=== PATIENT | female | born 1935 | race Caucasian/White ===

== ENCOUNTER 2024-03-16 19:08 | Inpatient (IN) | payer MEDICARE, OTHER, SELFPAY ==
[2024-03-16] VITALS (30 sets, daily range): BP systolic 96–129; BP diastolic 61–80; PULSE 69–102; TEMP 36.9; O2SAT 93–98; BMI 21.4
--- NOTE | 2024-03-16 19:12 | ECG_ITS ---
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
--- NOTE | 2024-03-16 19:21 | ED.WEAKNESS1 ---
HPI - Weakness General Chief complaint: Weakness Stated complaint: WEAKNESS Time Seen by Provider: 03/16/24 19:17 Source: patient Mode of arrival: ambulance Limitations: physical limitation History of Present Illness HPI Narrative: patient presents from home with generalized weakness for about 4 days. Recent placement of pacemaker. Also being treated for UTI. Denies any chest or abdominal pain. Has chronic hip pain. No fever. States she vomited once and also one episode of diarrhea. She is not short of breath. Related Data Home Medications ?Medication ?Instructions ?Recorded ?Confirmed apixaban 2.5 mg tablet 2.5 mg PO BID 03/16/24 03/16/24 atorvastatin 10 mg tablet 10 mg PO DAILY 03/16/24 03/16/24 hydrochlorothiazide 12.5 mg capsule 12.5 mg PO DAILY 03/16/24 03/16/24 losartan 50 mg tablet 50 mg PO DAILY 03/16/24 03/16/24 methimazole 5 mg tablet 5 mg PO DAILY 03/16/24 03/16/24 metoprolol tartrate 25 mg tablet 25 mg PO DAILY 03/16/24 03/16/24 sulfamethoxazole 800 1 tab PO DAILY 03/16/24 03/16/24 mg-trimethoprim 160 mg tablet (Bactrim DS) Allergies Allergy/AdvReac Type Severity Reaction Status Date / Time No Known Drug Allergies Allergy Verified 03/16/24 19:16 Review of Systems ROS Status of ROS 10 or more systems reviewed and unremarkable except as noted in history and below PFSH PFSH Social History Little interest or pleasure in doing things: not at all Feeling down, depressed, or hopeless: not at all Exam Constitutional Vital Signs, click to edit/add: Last Vital Signs Temp 98.4 F 03/16/24 19:10 Pulse 70 03/16/24 23:50 Resp 17 03/16/24 23:10 BP 118/75 03/16/24 23:30 Pulse Ox 95 03/16/24 22:50 O2 Del Method Room Air 03/16/24 19:10 Common normals: average body habitus, oriented x3, no limitations, alert and well nourished Other: looks weak HENMT Common normals: normocephalic and head/scalp atraumatic Eye Common normals: EOMs intact bilaterally and conjunctivae normal Chest Other: ecchymosis of her breast from pacer placement Respiratory Common normals: normal respiratory effort, no retractions, no use of accessory muscles and clear to auscultation bilaterally Cardio Common normals: regular rate, regular rhythm, S1 normal heart sound and S2 normal heart sound GI Common normals: Normal to inspection, nondistended, normoactive bowel sounds present, soft to palpation and non-tender Extremity Common normals: normal to inspection and full ROM Neuro Common normals: oriented x3, CN's II-XII intact bilaterally, moves all extremities and no focal motor deficits Psych Appearance: grossly normal Course Vital Signs Vital signs: Vital Signs Temperature 98.4 F 03/16/24 19:10 Pulse Rate 93 H 03/16/24 19:10 Respiratory Rate 18 03/16/24 19:10 Blood Pressure 96/61 03/16/24 19:10 Pulse Oximetry 95 03/16/24 19:10 Oxygen Delivery Method Room Air 03/16/24 19:10 Temperature 98.4 F 03/16/24 19:10 Pulse Rate 70 03/16/24 23:50 Respiratory Rate 17 03/16/24 23:10 Blood Pressure 118/75 03/16/24 23:30 Pulse Oximetry 95 03/16/24 22:50 Oxygen Delivery Method Room Air 03/16/24 19:10 MDM - Weakness Medical Records Medical records narrative: patient presents with generalized weakness for past 3- for days. No pain or dyspnea. Troponin neg. cxray clear. UA infected. Discussed with the hospitalist and patient accepted for admission Lab Data Labs: Lab Results 03/16/24 03/16/24 Range/Units 19:25 23:14 WBC 8.2 (4.0-11.0) 10^3/uL RBC 4.74 (4.20-5.40) 10^6/uL Hgb 14.4 (12.0-16.0) g/dL Hct 42.3 (36.0-48.0) % MCV 89.2 (81.0-99.0) fL MCH 30.4 (26.7-34.0) pg MCHC 34.0 (29.9-35.2) g/dL RDW 13.6 (11.0-15.0) % Plt Count 213 (150-450) 10^3/uL MPV 9.4 L (9.5-13.5) fL Seg Neuts % (Manual) 86.0 H (43.0-75.0) Lymphocytes % (Manual) 8.0 L (20.5-60.0) % Monocytes % (Manual) 5.0 (1.7-12.0) % Eosinophils % (Manual) 1.0 (0.9-7.0) % Basophils % (Manual) 0.0 L (0.2-2.0) % Neutrophils # (Manual) 7.05 H (1.4-6.5) 10^3/uL Lymphocytes # (Manual) 0.65 L (1.20-3.80) 10^3/uL Monocytes # (Manual) 0.41 (0.30-0.80) 10^3/uL Eosinophils # (Manual) 0.08 (0.00-0.70) 10^3/uL Basophils # (Manual) 0.00 (0.00-0.10) 10^3/uL Sodium 133 L (136-145) mmol/L Potassium 4.5 (3.5-5.1) mmol/L Chloride 100 (98-107) mmol/L Carbon Dioxide 19.1 L (21.0-32.0) mmol/L Anion Gap 18.4 BUN 31.0 H (7.0-18.0) mg/dL Creatinine 0.96 (0.55-1.02) mg/dL Est GFR ( Amer) >60 (>=60 mL/min/1.73m^2) Est GFR (Non-Af Amer) 55 L (>=60 mL/min/1.73m^2) BUN/Creatinine Ratio 32.3 Glucose 134 H (74-106) mg/dL Lactate 1.5 (0.4-2.0) mmol/L Calcium 8.4 L (8.5-10.1) mg/dL Total Bilirubin 0.5 (0.2-1.0) mg/dL AST 26 (15-37) U/L ALT 16 (14-59) U/L Alkaline Phosphatase 76 (46-116) U/L Troponin I High Sens 9.5 (4.0-51.3) pg/mL Total Protein 6.0 L (6.4-8.2) g/dL Albumin 2.9 L (3.4-5.0) g/dL Globulin 3.1 g/dL Albumin/Globulin Ratio 0.9 TSH & Free T4 Interp 1.088 (0.358-3.740) uIU/mL Urine Color Dk yellow (YELLOW) Urine Clarity Slightly cloudy A (CLEAR) Urine pH 6.0 (5.0-9.0) Ur Specific [place] 1.025 (1.005-1.025) Urine Protein 30 A (NEG/TRACE) mg/dL Urine Glucose (UA) Negative (NEGATIVE) mg/dL Urine Ketones 40 A (NEGATIVE) mg/dL Urine Occult Blood Trace-l (NEGATIVE) Urine Nitrite Negative (NEGATIVE) Urine Bilirubin Small A (NEGATIVE) Urine Urobilinogen 2.0 A (0.2-1.0) EU/dL Ur Leukocyte Esterase Small A (NEGATIVE) Urine RBC 0-2 (0-2) #/HPF Urine WBC 10-20 A (NONE SEEN) #/HPF Ur Squamous Epith Cells Moderate A (NONE/RARE) #/LPF Urine Crystals None seen (None Seen) #/HPF Urine Bacteria Moderate A (NONE SEEN) #/HPF Urine Casts Seen A (NONE SEEN) #/LPF Hyaline Casts Few Coarse Granular Casts Moderate Urine Mucus Small A (NONE SEEN) Ur Culture Indicated? Yes Discharge Plan Discharge Chief Complaint: Weakness Clinical Impression: Acute UTI, Generalized weakness Patient Disposition: Admitted as Observation
--- NOTE | 2024-03-16 19:24 | XR_ITS ---
The [address] [address] Patient Name: JOSEMANUEL GREER MRN: [id number] date: 1935 Sex: F Assigned Patient Location: ER Current Patient Location: ER Accession/Order Number: [id number] Exam Date: 03/16/2024 19:38 Report Date: 03/16/2024 21:56 At the request of: KEATON RUSH Procedure: XR chest 1V CHEST RADIOGRAPH: HISTORY: weakness. COMPARISON: None available. TECHNIQUE: AP radiograph of was performed of the chest. FINDINGS: SUPPORT APPARATUS/POST-SURGICAL CHANGES: There is a left subclavian pacemaker with leads in the right atrium and right ventricle. CARDIOMEDIASTINAL SILHOUETTE: Upper limits of normal in size. The aorta is tortuous with atherosclerotic calcification and slightly ectatic. AIRWAYS/LUNGS: There is probable mild right basilar atelectasis but no focal consolidation. PLEURAL SPACES: No pleural effusion or pneumothorax. BONES AND SOFT TISSUES: No acute abnormality. XR/XR chest 1V IMPRESSION: No acute cardiopulmonary process. Electronically authenticated by: NIKO NARAYANAN Date: 03/16/2024 21:56
[2024-03-16] MEDS: 0.9 % SODIUM CHLORIDE 1,000 ML 999 ML IV (19:40)
[2024-03-16 19:54] LABS: Hematocrit 42.3 % (36.0-48.0); Hemoglobin 14.4 g/dL (12.0-16.0); Mean Corpuscular Hemoglobin 30.4 pg (26.7-34.0); Mean Corpuscular Volume 89.2 fL (81.0-99.0); Mean Platelet Volume 9.4 fL (9.5-13.5); Platelet Count 213 10^3/uL (150-450); Red Blood Count 4.74 10^6/uL (4.20-5.40); Red Cell Distribution Width 13.6 % (11.0-15.0); White Blood Count 8.2 10^3/uL (4.0-11.0)
[2024-03-16 20:18] LABS: Lactate/Lactic Acid 1.5 mmol/L (0.4-2.0)
[2024-03-16 20:25] LABS: Alanine Aminotransferase 16 U/L (14-59); Albumin Globulin Ratio 0.9; Albumin Level 2.9 g/dL (3.4-5.0); Alkaline Phosphatase 76 U/L (46-116); Anion Gap 18.4; Aspartate Amino Transferase 26 U/L (15-37); BUN Creatinine Ratio 32.3; Bilirubin Total 0.5 mg/dL (0.2-1.0); Calcium 8.4 mg/dL (8.5-10.1); Carbon Dioxide 19.1 mmol/L (21.0-32.0); Chloride 100 mmol/L (98-107); Estimated GFR (African America >60 (>=60 mL/min/1.73m^2); Estimated GFR (Non-African Ame 55 (>=60 mL/min/1.73m^2); Globulin 3.1 g/dL; Glucose 134 mg/dL (74-106); Potassium 4.5 mmol/L (3.5-5.1); Sodium 133 mmol/L (136-145); Troponin I High Sensitivity 9.5 pg/mL (4.0-51.3)
[2024-03-16 20:32] LABS: TSH W/ REFLEX FT4 1.088 uIU/mL (0.358-3.740)
[2024-03-16 21:14] LABS: Eosinophils Absolute Manual 0.08 10^3/uL (0.00-0.70); Lymphocytes Absolute Manual 0.65 10^3/uL (1.20-3.80); Monocytes Absolute Manual 0.41 10^3/uL (0.30-0.80); Segmented Neut Absolute Manual 7.05 10^3/uL (1.4-6.5)
[2024-03-16] MEDS: ACETAMINOPHEN 500 MG TABLET 1000 MG PO (21:37)
[2024-03-16 23:22] LABS: Bilirubin Urine SMALL (NEGATIVE); Blood Urine TRACE-L (NEGATIVE); Glucose Urine UA NEGATIVE (NEGATIVE); Ketones Urine 40 mg/dL (NEGATIVE); Leukocyte Esterase Urine SMALL (NEGATIVE); Nitrite Urine NEGATIVE (NEGATIVE); Protein Urine 30 mg/dL (NEG/TRACE); Specific Gravity Urine 1.025 (1.005-1.025)
[2024-03-16 23:23] LABS: Urine Microscopic Indicated YES
[2024-03-16 23:24] LABS: Clarity Urine SLIGHTLY CLOUDY (CLEAR); Color Urine DK YELLOW (YELLOW)
[2024-03-16 23:46] LABS: RBC Urine 0-2 #/HPF (0-2)
[2024-03-16 23:47] LABS: Bacteria Urine MODERATE #/HPF (NONE SEEN); Cast Seen? SEEN #/LPF (NONE SEEN); Coarse Granular Casts Urine MODERATE; Crystals Seen? None Seen #/HPF (None Seen); Hyaline Casts Urine FEW; Mucus Urine SMALL (NONE SEEN); Squamous Epithelial Cell Urine MODERATE #/LPF (NONE/RARE); Urine Culture Indicated YES
[2024-03-17] VITALS (15 sets, daily range): BP systolic 103–135; BP diastolic 65–86; PULSE 60–99; TEMP 36.2–36.6; O2SAT 93–97; BMI 21.6
[2024-03-17] MEDS: 0.9 % SODIUM CHLORIDE 1,000 ML 100 ML IV (05:57)
[2024-03-17] MEDS: ONDANSETRON PF 4 MG/2 ML VIAL IV ×3 (05:58→22:32)
[2024-03-17] MEDS: HYDROCODONE/ACET 5-325 MG TABLET 1 TAB PO (05:58)
[2024-03-17] MEDS: CEFTRIAXONE 1,000 MG in 0.9 % SODIUM CHLORIDE 50 ML 100 MG IV ×2 (05:58→22:32)
[2024-03-17 06:27] LABS: Basophils Percent Auto 0.4 % (0.2-2.0); Eosinophils Absolute Auto 0.1 10^3/uL (0.0-0.7); Eosinophils Percent Auto 0.9 % (0.9-7.0); Hematocrit 40.1 % (36.0-48.0); Hemoglobin 13.7 g/dL (12.0-16.0); Immature Granulocytes Abs Auto 0.03 10^3/uL (0.00-0.03); Immature Granulocytes Pct Auto 0.3 % (0.0-0.5); Lymphocytes Absolute Auto 0.9 10^3/uL (1.2-3.8); Lymphocytes Percent Auto 9.7 % (20.5-60.0); Mean Corpuscular HGB Conc 34.2 g/dL (29.9-35.2); Mean Corpuscular Hemoglobin 30.5 pg (26.7-34.0); Mean Corpuscular Volume 89.3 fL (81.0-99.0); Mean Platelet Volume 9.2 fL (9.5-13.5); Monocytes Absolute Auto 0.6 10^3/uL (0.3-0.8); Monocytes Percent Auto 6.7 % (1.7-12.0); Neutrophils Absolute Auto 7.3 10^3/uL (1.4-6.5); Platelet Count 185 10^3/uL (150-450); Red Blood Count 4.49 10^6/uL (4.20-5.40); Red Cell Distribution Width 13.6 % (11.0-15.0)
[2024-03-17 06:56] LABS: Alanine Aminotransferase 14 U/L (14-59); Albumin Globulin Ratio 0.9; Albumin Level 2.4 g/dL (3.4-5.0); Alkaline Phosphatase 63 U/L (46-116); Anion Gap 15.9; Aspartate Amino Transferase 29 U/L (15-37); Bilirubin Total 0.5 mg/dL (0.2-1.0); Carbon Dioxide 22.6 mmol/L (21.0-32.0); Chloride 103 mmol/L (98-107); Estimated GFR (African America >60 (>=60 mL/min/1.73m^2); Estimated GFR (Non-African Ame >60 (>=60 mL/min/1.73m^2); Globulin 2.8 g/dL; Glucose 118 mg/dL (74-106); Potassium 4.5 mmol/L (3.5-5.1); Sodium 137 mmol/L (136-145); Total Protein 5.2 g/dL (6.4-8.2)
[2024-03-17 07:00] LABS: Magnesium 1.8 mg/dL (1.8-2.4)
--- NOTE | 2024-03-17 10:39 | P.HP_ITS ---
HPI H&P: HPI History of Present Illness Chief complaint: WEAKNESS Narrative: Patient presented to the emergency room with increasing weakness. Found to have significant sinus tachycardia and hypotension secondary to acute UTI. I saw patient up on the medical surgical floor, she was feeling somewhat better with fluids given overnight. No other specific complaints. Opioid HPI Opioid Management Most Recent Pain and Opioid Data: Last Pain Scale 7 03/17/24 11:00 03/17/24 Last Pain Assessment 03/17/24 11:00 Last MAR Pain Assessment 03/17/24 05:58 Last ORT Total Score 0 03/17/24 00:53 03/17/24 Last ORT Risk Category Low Risk 03/17/24 00:53 03/17/24 Review of Systems ROS Status of ROS 10 or more systems reviewed and unremark able except as noted in history and below [facility] Medical History (Updated 03/17/24 @ 07:15 by Taylor Diaz) Pacemaker ?Z95.0 - Presence of cardiac pacemaker (ICD-10) Social History Highest level of school completed/degree received: high school graduate Little interest or pleasure in doing things: not at all Feeling down, depressed, or hopeless: not at all Meds Home Medications and Allergies Home Medications ?Medication ?Instructions ?Recorded ?Confirmed ?Type apixaban 2.5 mg tablet 2.5 mg PO BID 03/16/24 03/16/24 History atorvastatin 10 mg tablet 10 mg PO DAILY 03/16/24 03/16/24 History hydrochlorothiazide 12.5 mg capsule 12.5 mg PO DAILY 03/16/24 03/16/24 History losartan 50 mg tablet 50 mg PO DAILY 03/16/24 03/16/24 History methimazole 5 mg tablet 5 mg PO DAILY 03/16/24 03/16/24 History metoprolol tartrate 25 mg tablet 25 mg PO DAILY 03/16/24 03/16/24 History sulfamethoxazole 800 1 tab PO DAILY 03/16/24 03/16/24 History mg-trimethoprim 160 mg tablet (Bactrim DS) Allergies Allergy/AdvReac Type Severity Reaction Status Date / Time No Known Drug Allergies Allergy Verified 03/16/24 19:16 Exam Constitutional Vital Signs, click to edit/add: Last Vital Signs Temp 97.6 F 03/17/24 00:53 Pulse 92 H 11/09/24 10:00 Resp 16 03/17/24 00:53 BP 135/72 03/17/24 00:53 Pulse Ox 94 L 03/17/24 00:53 O2 Del Method Room Air 03/17/24 00:53 Documenting provider has reviewed patient's vital signs: yes Common normals: no apparent distress Chest Common normals: inspection of chest normal Respiratory Common normals: normal respiratory effort and no retractions Cardio Common normals: regular rate and regular rhythm GI Common normals: Normal to inspection, nondistended, normoactive bowel sounds present and soft to palpation Common normals: external appearance normal Extremity Common normals: normal to inspection and full ROM Results Labs Labs: Short CBC 03/16/24 03/17/24 Range/Units 19:25 06:08 WBC 8.2 9.0 (4.0-11.0) 10^3/uL Hgb 14.4 13.7 (12.0-16.0) g/dL Hct 42.3 40.1 (36.0-48.0) % Plt Count 213 185 (150-450) 10^3/uL BMP 03/16/24 03/17/24 19:25 06:08 Sodium 133 L 137 Potassium 4.5 4.5 Chloride 100 103 Carbon Dioxide 19.1 L 22.6 BUN 31.0 H 28.0 H Creatinine 0.96 0.80 Glucose 134 H 118 H Calcium 8.4 L 8.0 L Liver Function 03/16/24 03/17/24 Range/Units 19:25 06:08 Total Bilirubin 0.5 0.5 (0.2-1.0) mg/dL AST 26 29 (15-37) U/L ALT 16 14 (14-59) U/L Alkaline Phosphatase 76 63 (46-116) U/L Albumin 2.9 L 2.4 L (3.4-5.0) g/dL Urine 03/16/24 Range/Units 23:14 Urine Color Dk yellow (YELLOW) Urine Clarity Slightly cloudy A (CLEAR) Urine pH 6.0 (5.0-9.0) Ur Specific [place] 1.025 (1.005-1.025) Urine Protein 30 A (NEG/TRACE) mg/dL Urine Glucose (UA) Negative (NEGATIVE) mg/dL Assessment and Plan Assessment and Plan (1) Generalized weakness: (2) Acute UTI: Plan Admission findings: Sinus tachycardia, hypotension, hyponatremia, normal white blood cell count but with left shift consistent with bacterial process. Acute UTI-IV antibiotics. IV fluids overnight. Patient without significant improvement since admission. Difficulty ambulating secondary to weakness and shortness of breath. Continue with IV antibiotics. Hyponatremia likely secondary to mild dehydration-monitor daily Moderate protein calorie malnutrition-diet management Hyperglycemia-monitor daily likely to secondary to nonfasting state Hypercholesterolemia-continue with home medications Hyperthyroidism-continue with home medications Admission status: Patient with significant weakness secondary to UTI and dehydration. She was given fluid overnight without significant improvement. Medically necessary treatment will span 2 midnights. Will change patient from observation to inpatient status secondary to the length of care needed, again medically necessary treatment spanning 2 midnights
[2024-03-17] MEDS: METHIMAZOLE 5 MG TABLET PO (15:25)
[2024-03-17] MEDS: ACETAMINOPHEN 500 MG TABLET 1000 MG PO ×2 (15:25→22:31)
[2024-03-17] MEDS: METOPROLOL TARTRATE 25 MG TABLET PO (15:26)
[2024-03-17] MEDS: HYOSCYAMINE SULFATE 0.125 MG TAB.SUBL SL (22:31)
[2024-03-17] MEDS: APIXABAN 5 MG TABLET 2.5 MG PO (22:32)
[2024-03-18] VITALS (7 sets, daily range): BP systolic 131; BP diastolic 80; PULSE 60–69; TEMP 36.6–36.7; O2SAT 93–96
[2024-03-18 06:26] LABS: Hematocrit 38.4 % (36.0-48.0); Hemoglobin 13.2 g/dL (12.0-16.0); Mean Corpuscular HGB Conc 34.4 g/dL (29.9-35.2); Mean Corpuscular Hemoglobin 30.7 pg (26.7-34.0); Mean Corpuscular Volume 89.3 fL (81.0-99.0); Mean Platelet Volume 8.8 fL (9.5-13.5); Platelet Count 183 10^3/uL (150-450); Red Cell Distribution Width 13.7 % (11.0-15.0); White Blood Count 9.2 10^3/uL (4.0-11.0)
[2024-03-18 06:42] LABS: Magnesium 1.7 mg/dL (1.8-2.4)
[2024-03-18 07:06] LABS: Band Neutrophils Absolute 0.1 10^3/uL (0.0-0.3); Segmented Neut Absolute Manual 7.36 10^3/uL (1.4-6.5)
[2024-03-18 07:07] LABS: Eosinophils Absolute Manual 0.09 10^3/uL (0.00-0.70); Lymphocytes Absolute Manual 1.28 10^3/uL (1.20-3.80); Monocytes Absolute Manual 0.36 10^3/uL (0.30-0.80)
[2024-03-18] MEDS: ONDANSETRON PF 4 MG/2 ML VIAL IV (08:51)
[2024-03-18] MEDS: APIXABAN 5 MG TABLET 2.5 MG PO (09:19)
[2024-03-18] MEDS: METHIMAZOLE 5 MG TABLET PO (09:19)
[2024-03-18] MEDS: METOPROLOL TARTRATE 25 MG TABLET PO (09:19)
[2024-03-18] MEDS: ACETAMINOPHEN 500 MG TABLET 1000 MG PO (09:21)
--- NOTE | 2024-03-18 11:24 | P.DS_ITS ---
DS: Providers Provider Date of admission: 03/17/24 12:00 Primary care physician: COLEEN JOVEL Consults: 03/17/24 Occupational Therapy Eval and Treat Routine Reason for consultation: generalized weakness Physical Therapy Eval and Treat Routine Reason for consultation: generalized weakness DS: Diagnosis Discharge Diagnosis (1) Generalized weakness: (2) Acute UTI: Plan Admission findings: Sinus tachycardia, hypotension, hyponatremia, normal white blood cell count but with left shift consistent with bacterial process. Acute UTI-IV antibiotics. Culture pending at the time of discharge Hyponatremia likely secondary to mild dehydration-improved at the time of discharge Moderate protein calorie malnutrition-diet management Hyperglycemia-monitor daily likely to secondary to nonfasting state Hypercholesterolemia-continue with home medications Hyperthyroidism-continue with home medications Admission status: Patient with significant weakness secondary to UTI and dehydration. She was given fluid overnight without significant improvement. Medically necessary treatment will span 2 midnights. Will change patient from observation to inpatient status secondary to the length of care needed, again medically necessary treatment spanning 2 midnights ? DS: Summary Hospital Course Hospital Course: Patient was seen and evaluated in the emergency room with increasing weakness, unable to ambulate in the emergency room, found to have significant dehydration and acute UTI. She was treated with IV antibiotics and IV fluids. We attempted to discharge her home yesterday but she was still too unsteady on her gait and was high risk for falls. Suspicion was that may be a resistant organism but was maintained on current antibiotic dosing. Given more fluids yesterday. With the improvement today. She is ambulating in the [place]. Maintain current antibiotics and the oral form, discharge patient to home in improving condition. Medications see list. Follow-up with PCP this week. Patient maintained inpatient status secondary to medically necessary treatment spanning 2 midnights due to failure to improve patient within the initial observational time. Status at Discharge Overall status at discharge: patient is not back to baseline Time Spent with Patient Time attestation: Total time spent providing and/or coordinating discharge services: Time spent: greater than 30 minutes Exam Constitutional Vital Signs, click to edit/add: Last Vital Signs Temp 98.0 F 03/18/24 08:35 Pulse 68 03/18/24 08:35 Resp 14 03/18/24 08:35 BP 131/80 03/18/24 08:35 Pulse Ox 93 L 03/18/24 08:35 O2 Del Method Room Air 03/18/24 08:35 Documenting provider has reviewed patient's vital signs: yes Common normals: no apparent distress Chest Common normals: inspection of chest normal Respiratory Common normals: normal respiratory effort and no retractions Cardio Common normals: regular rate and regular rhythm GI Common normals: Normal to inspection, nondistended, normoactive bowel sounds present and non-tender Common normals: no CVA tenderness and external appearance normal Extremity Common normals: normal to inspection and no clubbing, cyanosis or edema DS: Data Data Completed and Pending Labs on day of discharge: Labs from last 24 hours 03/18/24 06:06 WBC 9.2 RBC 4.30 Hgb 13.2 Hct 38.4 MCV 89.3 MCH 30.7 MCHC 34.4 RDW 13.7 Plt Count 183 MPV 8.8 L Seg Neuts % (Manual) 80.0 H Band Neutrophils % 1.0 Lymphocytes % (Manual) 14.0 L Monocytes % (Manual) 4.0 Eosinophils % (Manual) 1.0 Basophils % (Manual) 0.0 L Neutrophils # (Manual) 7.36 H Band Neutrophils # 0.1 Lymphocytes # (Manual) 1.28 Monocytes # (Manual) 0.36 Eosinophils # (Manual) 0.09 Basophils # (Manual) 0.00 Magnesium 1.7 L Discharge Plan Discharge Disposition: Home, Self-Care Discharge Medications: New ondansetron 4 mg tablet,disintegrating 4 mg PO Q6H PRN (Reason: nausea and vomiting) Qty: 10 0RF cefdinir 300 mg capsule 600 mg PO DAILY Qty: 20 0RF Continued apixaban 2.5 mg tablet 2.5 mg PO BID atorvastatin 10 mg tablet 10 mg PO DAILY hydrochlorothiazide 12.5 mg capsule 12.5 mg PO DAILY losartan 50 mg tablet 50 mg PO DAILY methimazole 5 mg tablet 5 mg PO DAILY metoprolol tartrate 25 mg tablet 25 mg PO DAILY sulfamethoxazole-trimethoprim [Bactrim DS] 800-160 mg tablet 1 tab PO DAILY Print Language: [place]an Patient Instructions: Ondansetron (By mouth), Cefdinir (By mouth), Urinary Tract Infection in Women (DC), Weakness (DC) Forms: Portal Instructions Discharge Date/Time: 03/18/24 13:10
--- NOTE | 2024-03-20 13:22 | CM.DCFOLLOWU ---
Person spoke with: Caregiver How are you feeling? She is sleeping right now but feeling overall better How is your pain? No pain Did you understand your discharge instructions? Yes Do you have any questions about your discharge instructions? No Were you given any prescriptions at discharge? Yes Were you able to get your prescriptions filled? Yes Do you understand how to take your medications as ordered? Yes Do you have any questions about your follow up appointment and do you plan to keep your follow up appointment? She went to her PCP today for f/u Is there anything else that you would like to discuss? No Questions/Comments/Concerns/Other:
== END 2024-03-18 13:10 | disposition home or self-care (01) | DRG 690 ==
LOC: ER 03-17 00:13 → MS 03-17 00:41
PROVIDERS: Registered Nurse; Admitting Provider Family Medicine; Emergency Provider Internal Medicine; PCP Family Medicine; Visit Provider Family Medicine
DX: N39.0 Urinary tract infection, site not specified (principal); E87.1 Hypo-osmolality and hyponatremia; E44.0 Moderate protein-calorie malnutrition; R53.1 Weakness; R00.0 Tachycardia, unspecified; I95.9 Hypotension, unspecified; E78.00 Pure hypercholesterolemia, unspecified; R73.9 Hyperglycemia, unspecified; E05.90 Thyrotoxicosis, unspecified without thyrotoxic crisis or storm; E86.0 Dehydration; Z95.0 Presence of cardiac pacemaker; Z79.899 Other long term (current) drug therapy; Z68.21 Body mass index [BMI] 21.0-21.9, adult
CPT/HCPCS: 36415; 71045; 80053; 81001; 83605; 83735; 84443; 84484; 85007; 85025; 85027; 87086; 93005; 96360; 97162; 99285; J0696; J2405

== ENCOUNTER 2024-03-26 12:18 | Inpatient (IN) | payer MEDICARE, OTHER, SELFPAY ==
[2024-03-26] VITALS (38 sets, daily range): BP systolic 90–127; BP diastolic 55–73; PULSE 61–98; TEMP 36.5–36.8; O2SAT 92–100; BMI 21.6; BMI 20.4
--- NOTE | 2024-03-26 12:33 | ECG_ITS ---
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
--- NOTE | 2024-03-26 12:33 | ED.WEAKNESS1 ---
HPI - Weakness General Chief complaint: Weakness Stated complaint: HYPOTENSION Time Seen by Provider: 03/26/24 12:31 Source: patient Mode of arrival: ambulance Limitations: no limitations History of Present Illness HPI Narrative: 88-year-old female presents for feeling weak. She states discharge today. Last week she was treated for UTI and she states she took her last dose of the antibiotic today. She does not have any pain and she has not had a fever. No complaints of abdominal pain or vomiting or diarrhea. Related Data Home Medications ?Medication ?Instructions ?Recorded ?Confirmed apixaban 2.5 mg tablet 2.5 mg PO BID 03/16/24 03/26/24 atorvastatin 10 mg tablet 10 mg PO DAILY 03/16/24 03/26/24 losartan 50 mg tablet 50 mg PO DAILY 03/16/24 03/26/24 methimazole 5 mg tablet 5 mg PO .3xweek 03/16/24 03/26/24 metoprolol tartrate 25 mg tablet 25 mg PO BID 03/16/24 03/26/24 cyclosporine 0.05 % eye drops in a 1 drp ophthalmic (eye) BID 03/26/24 03/26/24 dropperette (Restasis) hydrochlorothiazide 12.5 mg tablet 12.5 mg PO DAILY 03/26/24 03/26/24 magnesium oxide 400 mg (241.3 mg 400 mg PO DAILY 03/26/24 03/26/24 magnesium) tablet timolol maleate 0.5 % eye drops 1 drp ophthalmic (eye) BID 03/26/24 03/26/24 Previous Rx's ?Medication ?Instructions ?Recorded cefdinir 300 mg capsule 600 mg (2 x 300 mg) PO DAILY #20 03/18/24 caps ondansetron 4 mg disintegrating 4 mg PO Q6H PRN nausea and 03/18/24 tablet vomiting #10 tabs Allergies Allergy/AdvReac Type Severity Reaction Status Date / Time No Known Drug Allergies Allergy Verified 03/26/24 12:21 Review of Systems ROS Narrative A ten point review of systems is negative except as noted above. [facility] Medical History (Updated 03/26/24 @ 16:25 by Je Hurst MD) Generalized weakness ?R53.1 - Weakness (ICD-10) Acute UTI ?N39.0 - Urinary tract infection, site not specified (ICD-10) Pacemaker ?Z95.0 - Presence of cardiac pacemaker (ICD-10) Social History Highest level of school completed/degree received: high school graduate Little interest or pleasure in doing things: not at all Feeling down, depressed, or hopeless: not at all Exam Narrative Exam Narrative: Nurses note and vital signs reviewed and patient is not hypoxic. General: The patient appears well and in no apparent distress. Patient is resting comfortably on cart. Skin: Warm, dry, no pallor noted. There is no rash noted. Head: Normocephalic, atraumatic Eye: Normal conjunctiva, no drainage Ears, Nose, Mouth, and Throat: oral mucosa is moist. Nares patent. Cardiovascular: Regular Rate and Rhythm Respiratory: Patient is in no distress, no accessory muscle use, lungs are clear to auscultation, no wheezing, rales or rhonchi Back: non-tender GI: Soft and nontender Musculoskeletal: The patient has no evidence of calf tenderness, no pitting edema, symmetrical pulses noted bilaterally Neurological: A&O, normal speech Psychiatric: Cooperative Constitutional Vital Signs, click to edit/add: Last Vital Signs Temp 98 F 03/26/24 12:18 Pulse 84 03/26/24 12:18 Resp 18 03/26/24 12:18 BP 98/67 03/26/24 12:18 Pulse Ox 99 03/26/24 12:25 O2 Del Method Room Air 03/26/24 12:25 Course Vital Signs Vital signs: Vital Signs Temperature 98 F 03/26/24 12:18 Pulse Rate 84 03/26/24 12:18 Respiratory Rate 18 03/26/24 12:18 Blood Pressure 98/67 03/26/24 12:18 Pulse Oximetry 100 03/26/24 12:18 Oxygen Delivery Method Room Air 03/26/24 12:18 Temperature 98 F 03/26/24 12:18 Pulse Rate 84 03/26/24 12:18 Respiratory Rate 18 03/26/24 12:18 Blood Pressure 98/67 03/26/24 12:18 Pulse Oximetry 99 03/26/24 12:25 Oxygen Delivery Method Room Air 03/26/24 12:25 MDM - Weakness MDM Narrative Medical decision making narrative: The patient's hemoglobin was 13.28 days ago and is 9.9 today. Stool is heme positive, brown in color on my exam. She was given IV Protonix and is being admitted. I have spoken to Dr. Rivera and he will be seeing the patient tomorrow as well. Findings are discussed with the patient and her family. Differential Diagnosis Differential diagnosis: Likely anemia and dehydration Lab Data Attestation: I reviewed the patient's lab results. Labs: Lab Results 03/26/24 03/26/24 Range/Units 13:11 13:35 WBC 11.2 H (4.0-11.0) 10^3/uL RBC 3.26 L (4.20-5.40) 10^6/uL Hgb 9.9 L (12.0-16.0) g/dL Hct 30.0 L (36.0-48.0) % MCV 92.0 (81.0-99.0) fL MCH 30.4 (26.7-34.0) pg MCHC 33.0 (29.9-35.2) g/dL RDW 13.6 (11.0-15.0) % Plt Count 233 (150-450) 10^3/uL MPV 8.4 L (9.5-13.5) fL Neut % (Auto) 81.9 H (43.0-75.0) % Lymph % (Auto) 11.2 L (20.5-60.0) % [place] % (Auto) 5.0 (1.7-12.0) % Eos % (Auto) 0.5 L (0.9-7.0) % Baso % (Auto) 0.3 (0.2-2.0) % Neut # (Auto) 9.2 H (1.4-6.5) 10^3/uL Lymph # (Auto) 1.3 (1.2-3.8) 10^3/uL [place] # (Auto) 0.6 (0.3-0.8) 10^3/uL Eos # (Auto) 0.1 (0.0-0.7) 10^3/uL Baso # (Auto) 0.0 (0.0-0.1) 10^3/uL Abs Immat Gran (auto) 0.12 H (0.00-0.03) 10^3/uL Imm/Tot Granulo (auto) 1.1 H (0.0-0.5) % Sodium 136 (136-145) mmol/L Potassium 4.5 (3.5-5.1) mmol/L Chloride 104 (98-107) mmol/L Carbon Dioxide 25.2 (21.0-32.0) mmol/L Anion Gap 11.3 BUN 36.0 H (7.0-18.0) mg/dL Creatinine 0.75 (0.55-1.02) mg/dL Est GFR ( Amer) >60 (>=60 mL/min/1.73m^2) Est GFR (Non-Af Amer) >60 (>=60 mL/min/1.73m^2) BUN/Creatinine Ratio 48.0 Glucose 114 H (74-106) mg/dL Calcium 8.5 (8.5-10.1) mg/dL Troponin I High Sens 7.6 (4.0-51.3) pg/mL Stool Occult Blood Positive A ECG Data Attestation: I personally reviewed and interpreted this ECG as follows: (EKG on my interpretation shows sinus rhythm with PACs) Discharge Plan Discharge Chief Complaint: Weakness Clinical Impression: GI bleed Patient Disposition: Admitted As Inpatient Time of Disposition Decision: 16:25 Condition: Fair Prescriptions / Home Meds: No Action cyclosporine [Restasis] 0.05 % dropperette 1 drp OPHTHALMIC (EYE) BID hydrochlorothiazide 12.5 mg tablet 12.5 mg PO DAILY magnesium oxide 400 mg (241.3 mg magnesium) tablet 400 mg PO DAILY timolol maleate 0.5 % drops 1 drp OPHTHALMIC (EYE) BID Rx Instructions: both eyes apixaban 2.5 mg tablet 2.5 mg PO BID atorvastatin 10 mg tablet 10 mg PO DAILY losartan 50 mg tablet 50 mg PO DAILY methimazole 5 mg tablet 5 mg PO .3xweek metoprolol tartrate 25 mg tablet 25 mg PO BID ondansetron 4 mg tablet,disintegrating 4 mg PO Q6H PRN (Reason: nausea and vomiting) Qty: 10 0RF cefdinir 300 mg capsule 600 mg PO DAILY Qty: 20 0RF Patient Comments: 03/18/24-03/28/24 Print Language: Bangladeshi Referrals: COLEEN JOVEL [Primary Care Provider] - 1 week
[2024-03-26 13:17] LABS: Basophils Percent Auto 0.3 % (0.2-2.0); Eosinophils Absolute Auto 0.1 10^3/uL (0.0-0.7); Eosinophils Percent Auto 0.5 % (0.9-7.0); Hemoglobin 9.9 g/dL (12.0-16.0); Immature Granulocytes Abs Auto 0.12 10^3/uL (0.00-0.03); Immature Granulocytes Pct Auto 1.1 % (0.0-0.5); Lymphocytes Absolute Auto 1.3 10^3/uL (1.2-3.8); Lymphocytes Percent Auto 11.2 % (20.5-60.0); Mean Corpuscular Hemoglobin 30.4 pg (26.7-34.0); Mean Platelet Volume 8.4 fL (9.5-13.5); Monocytes Absolute Auto 0.6 10^3/uL (0.3-0.8); Neutrophils Absolute Auto 9.2 10^3/uL (1.4-6.5); Neutrophils Percent Auto 81.9 % (43.0-75.0); Platelet Count 233 10^3/uL (150-450); Red Blood Count 3.26 10^6/uL (4.20-5.40); Red Cell Distribution Width 13.6 % (11.0-15.0); White Blood Count 11.2 10^3/uL (4.0-11.0)
--- NOTE | 2024-03-26 13:28 | SWNOTE1 ---
SW received a call from ED administrative secretary and pt's family member would like to speak to SW.
[2024-03-26 13:32] LABS: Anion Gap 11.3; Calcium 8.5 mg/dL (8.5-10.1); Carbon Dioxide 25.2 mmol/L (21.0-32.0); Chloride 104 mmol/L (98-107); Estimated GFR (African America >60 (>=60 mL/min/1.73m^2); Estimated GFR (Non-African Ame >60 (>=60 mL/min/1.73m^2); Glucose 114 mg/dL (74-106); Potassium 4.5 mmol/L (3.5-5.1); Sodium 136 mmol/L (136-145); Troponin I High Sensitivity 7.6 pg/mL (4.0-51.3)
[2024-03-26 13:41] LABS: Internal Control Within Normal Limits; Occult Blood Positive
--- NOTE | 2024-03-26 13:58 | SWNOTE1 ---
ELAN met with pt and 2 daughters. Pt was sleeping during conversation. Pt had a pace maker placed back a few months ago. Once she returned home from having that done she went in to [facility]. [facility] [place] and was cleared for dc and not admitted. Pt then came here to [facility] and was admitted but discharged in one day. They voiced she could not really ambulate. They have had concerns ever since pace maker placement and she has been declining ever since. She was able to complete all ADL'S prior to pace maker and living on her own. The daughters have been taking turns staying with her. They voiced that she wants to get better, but it is exhausting just for her to eat. They stated that pt has voiced she does not feel right. Daughters have voiced that pt's goal is to get better and they are all agreeable to rehab at a facility. SW to speak with doctor to see if pt has a medical reason to be admitted. Doctor will be admitting her. ELAN let pt's daughters know that pt will be admitted. ELAN did provide them with a list from Medicare.gov. They do have family member that works in facility and places they have ruled out. There first choice is [facility]. Second is [facility]. Third/fourth choice is [place] or [place]. Pt is a precert. ELAN reached out to [facility] to see if they are in network with [facility].
[2024-03-26] MEDS: PANTOPRAZOLE SODIUM 40 MG VIAL IV (14:01)
--- NOTE | 2024-03-26 14:09 | SWNOTE1 ---
Correction to previous note, pace maker placed last month.
--- NOTE | 2024-03-26 14:59 | SWNOTE1 ---
ELAN called [facility] and left message. ELAN called [facility] again and was able to speak to Alicja in admissions. She voiced they are in network. ELAN sent face sheet, case management report and labs. SW to send further information once pt is admitted. ELAN let Kim know that [facility] is in network and they are reviewing.
[2024-03-26 15:06] LABS: Bilirubin Urine NEGATIVE (NEGATIVE); Blood Urine NEGATIVE (NEGATIVE); Clarity Urine CLEAR (CLEAR); Color Urine LT. YELLOW (YELLOW); Glucose Urine UA NEGATIVE (NEGATIVE); Ketones Urine TRACE mg/dL (NEGATIVE); Leukocyte Esterase Urine NEGATIVE (NEGATIVE); Nitrite Urine NEGATIVE (NEGATIVE); Protein Urine NEGATIVE (NEG/TRACE); Urobilinogen Urine 0.2 EU/dL (0.2-1.0)
[2024-03-26 15:31] LABS: Bacteria Urine TRACE #/HPF (NONE SEEN); Crystals Seen? None Seen #/HPF (None Seen); Mucus Urine NONE SEEN (NONE SEEN); RBC Urine NONE SEEN #/HPF (0-2); Squamous Epithelial Cell Urine NONE SEEN #/LPF (NONE/RARE); WBC Urine 0-2 #/HPF (NONE SEEN)
[2024-03-26 15:32] LABS: Cast Seen? NONE SEEN #/LPF (NONE SEEN)
[2024-03-26] MEDS: ACETAMINOPHEN 325 MG TABLET 650 MG PO (16:22)
--- NOTE | 2024-03-26 17:06 | PM.HP ---
HPI H&P: HPI History of Present Illness Chief complaint: HYPOTENSION GI BLEED Narrative: Patient is a 88 year old white female with past medical history of Pacemaker (on Eliquis), Afib, HLD, HTN, Hyperthyroidism, glaucoma who presented today to the ER for increased weakness. She also notes Dark stools. She recently was treated here for acute UTI and just finished her course of Cefdinir. She denies fevers or chills. No nausea/vomiting or diarrhea. She denies any recent bleeding issues. She is compliant with her Eliquis and last dose was this morning. She has also become very dependent for her ADL's, weakness and higher risk of falls. Family/daughters concern about her safety at home and the need for total home care. Daughter report rapid decline since getting the pacemaker. She rarely eats, gets tired just sitting at the table. She spends most of her day in bed and needs 100% assistence with ADL's. She has been treated with antibiotics for persistent UTI's several times over the last few months, no appetite or strength. She notes infrequent bowel movements and just started to be black in nature. She has been nauseated, has been taking alot of Zofran. She has never had EGD or colonoscopy in the past. She is ex smoker, quit in July. No personal cancer history. Code status was discussed with patient and daughters and patient wishes to be a DNRCCA, paper was signed and updated to the chart. ER findings of Hb 9.9 down from 13.5. Stool was Hemoccult positive. Opioid HPI Opioid Management Most Recent Pain and Opioid Data: Last Pain Scale 8 03/26/24 16:22 03/26/24 Last Pain Assessment 03/27/24 06:00 Last MAR Pain Assessment 03/26/24 16:22 Last ORT Total Score 0 03/26/24 18:05 03/26/24 Last ORT Risk Category Low Risk 03/26/24 18:05 03/26/24 Review of Systems ROS Narrative ROS: a complete review of systems were reviewed with patient and are positive as below or listed in History of Chief Complaint. General: no fever, chills, night sweats Head: no headache, trauma, visual changes, nausea or vomiting Skin: no reported rashes, itching or sores Eyes: no blurriness of vision Ears: no reported hearing loss, vertigo, earache, or tinnitus Throat: no sore throat, hoarseness, swelling of neck, or tongue pain Heart: no chest pain Lungs: no shortness of breath or cough GI: no diarrhea but vomiting/nausea Urinary: no urinary urgency, frequency or pain Neuro: no numbness or tingling HEM: no bleeding issues or bruising ENDO: no thyroid problems Psych: no anxiety or depression [facility] Medical History (Updated 03/26/24 @ 17:58 by Ellen Cardoso RN) Bradycardia ?R00.1 - Bradycardia, unspecified (ICD-10) Atrial fibrillation ?I48.91 - Unspecified atrial fibrillation (ICD-10) Glaucoma ?H40.9 - Unspecified glaucoma (ICD-10) Hyperthyroidism ?E05.90 - Thyrotoxicosis, unspecified without thyrotoxic crisis or storm (ICD-10) Primary hypertension ?I10 - Essential (primary) hypertension (ICD-10) Hyperlipidemia ?E78.5 - Hyperlipidemia, unspecified (ICD-10) Generalized weakness ?R53.1 - Weakness (ICD-10) Acute UTI ?N39.0 - Urinary tract infection, site not specified (ICD-10) Pacemaker ?Z95.0 - Presence of cardiac pacemaker (ICD-10) Surgical History History of tubal ligation ?Z98.51 - Tubal ligation status (ICD-10) Family History Brother Family history of cancer Mother Family history of hypertension Family history of stroke Family history of CHF (congestive heart failure) Father Family history of myocardial infarction Social History Within the past year, how often did you have a drink containing alcohol: never Score interpretation: A score less than 3 is consistent with normal alcohol consumption. Smoking status: Former smoker Non-prescribed substance use: denies use Highest level of school completed/degree received: high school graduate Little interest or pleasure in doing things: not at all Feeling down, depressed, or hopeless: not at all Meds Home Medications and Allergies Home Medications ?Medication ?Instructions ?Recorded ?Confirmed ?Type apixaban 2.5 mg tablet 2.5 mg PO BID 03/16/24 03/26/24 History atorvastatin 10 mg tablet 10 mg PO DAILY 03/16/24 03/26/24 History losartan 50 mg tablet 50 mg PO DAILY 03/16/24 03/26/24 History methimazole 5 mg tablet 5 mg PO .3xweek 03/16/24 03/26/24 History metoprolol tartrate 25 mg tablet 25 mg PO BID 03/16/24 03/26/24 History cefdinir 300 mg capsule 600 mg (2 x 300 mg) PO DAILY #20 03/18/24 03/26/24 Rx caps ondansetron 4 mg disintegrating 4 mg PO Q6H PRN nausea and 03/18/24 03/26/24 Rx tablet vomiting #10 tabs cyclosporine 0.05 % eye drops in a 1 drp ophthalmic (eye) BID 03/26/24 03/26/24 History dropperette (Restasis) hydrochlorothiazide 12.5 mg tablet 12.5 mg PO DAILY 03/26/24 03/26/24 History magnesium oxide 400 mg (241.3 mg 400 mg PO DAILY 03/26/24 03/26/24 History magnesium) tablet timolol maleate 0.5 % eye drops 1 drp ophthalmic (eye) BID 03/26/24 03/26/24 History Allergies Allergy/AdvReac Type Severity Reaction Status Date / Time No Known Drug Allergies Allergy Verified 03/26/24 12:21 Exam Narrative Exam Narrative: General: Patient is alert, and oriented to person, place and time with normal affect, proper hygiene, cachexia Skin: no visible rashes, or ulcers, skin pallor Head: atraumatic, acephalic Eyes: PERRLA, no nystagmus present, conjunctiva clear, no scleral icterus Ears: normal gross auditory acuity Nose: symmetric, no discharge, no maxillary or frontal sinus tenderness Neck: no masses palpated Heart: Normal rate and rhythm, no murmurs/rubs/gallops Lungs: no audible wheezes, crackles and normal breath sounds all lung weinberg Abdomen: Normal audible bowel sounds, no distension, No palpable masses, no organomegaly, no rebound/guarding/ or rigidity Musculoskeletal: no swelling bilateral lower extremities Neuro: CN II-X grossly intact Constitutional Vital Signs, click to edit/add: Last Vital Signs Temp 98 F 03/26/24 12:18 Pulse 75 03/26/24 16:50 Resp 16 03/26/24 16:50 BP 116/73 03/26/24 16:30 Pulse Ox 98 03/26/24 16:50 O2 Del Method Room Air 03/26/24 12:25 Results Labs Labs: Short CBC 03/26/24 Range/Units 13:11 WBC 11.2 H (4.0-11.0) 10^3/uL Hgb 9.9 L (12.0-16.0) g/dL Hct 30.0 L (36.0-48.0) % Plt Count 233 (150-450) 10^3/uL BMP 03/26/24 13:11 Sodium 136 Potassium 4.5 Chloride 104 Carbon Dioxide 25.2 BUN 36.0 H Creatinine 0.75 Glucose 114 H Calcium 8.5 Urine 03/26/24 Range/Units 14:15 Urine Color Lt. yellow (YELLOW) Urine Clarity Clear (CLEAR) Urine pH 6.0 (5.0-9.0) Ur Specific [place] 1.010 (1.005-1.025) Urine Protein Negative (NEG/TRACE) mg/dL Urine Glucose (UA) Negative (NEGATIVE) mg/dL Assessment and Plan Assessment and Plan (1) Acute upper GI bleed: Assessment and Plan: continue IV protonix and PO Pepcid. Concern for Erosive gastritis vs mass. I have made her NPO after midnight, monitor H&H q8 hours. Type and screen. General Surgery consult and evaluation. If no plan for EGD inpatient will consider IV and oral contrasted CT. Hold Eliquis (2) Generalized weakness: Assessment and Plan: Most likely from #1, PT/OT evaluation. (3) Hyperlipidemia: Assessment and Plan: continue statin Qualifiers: Hyperlipidemia type: unspecified Qualified Code(s): E78.5 - Hyperlipidemia, unspecified (4) Primary hypertension: Assessment and Plan: patient hypotensive, continue metoprolol but hold others. Patient with Afib and do not want HR getting erratic (5) Hyperthyroidism: Assessment and Plan: hold methimazole for now, Check TFT's (6) Glaucoma: Assessment and Plan: resume drops Qualifiers: Glaucoma type: unspecified Laterality: unspecified laterality Qualified Code(s): H40.9 - Unspecified glaucoma (7) Pacemaker: Plan Patient is a DNRCCA holding prophylaxis other than SCD's due to bleeding. Patient is inpatient status and is expected to cross 2 midnights for her UGIB. Urinary Catheter Management Urinary Catheter Management Straight: Cath placed during this visit: yes Urethral indwelling: No Insertion date: 03/26/24 Insertion time: 14:10
[2024-03-26] MEDS: FAMOTIDINE 20 MG TABLET PO (20:58)
[2024-03-26] MEDS: TIMOLOL MALEATE 0.5% OP SOL 100 DROPS/5 ML BOTTLE 1 DROP OP (20:58)
[2024-03-26] MEDS: METOPROLOL TARTRATE 25 MG TABLET PO (20:58)
[2024-03-26 21:34] LABS: Basophils Percent Auto 0.2 % (0.2-2.0); Eosinophils Absolute Auto 0.1 10^3/uL (0.0-0.7); Eosinophils Percent Auto 0.8 % (0.9-7.0); Hematocrit 26.6 % (36.0-48.0); Immature Granulocytes Abs Auto 0.09 10^3/uL (0.00-0.03); Immature Granulocytes Pct Auto 0.9 % (0.0-0.5); Lymphocytes Absolute Auto 2.2 10^3/uL (1.2-3.8); Lymphocytes Percent Auto 22.4 % (20.5-60.0); Mean Corpuscular HGB Conc 33.8 g/dL (29.9-35.2); Mean Corpuscular Hemoglobin 30.8 pg (26.7-34.0); Mean Corpuscular Volume 91.1 fL (81.0-99.0); Mean Platelet Volume 8.5 fL (9.5-13.5); Monocytes Absolute Auto 0.7 10^3/uL (0.3-0.8); Monocytes Percent Auto 7.4 % (1.7-12.0); Neutrophils Absolute Auto 6.8 10^3/uL (1.4-6.5); Neutrophils Percent Auto 68.3 % (43.0-75.0); Platelet Count 232 10^3/uL (150-450); Red Blood Count 2.92 10^6/uL (4.20-5.40); Red Cell Distribution Width 13.7 % (11.0-15.0)
[2024-03-27] VITALS (17 sets, daily range): BP systolic 90–111; BP diastolic 55–72; PULSE 60–94; TEMP 36.4–36.8; O2SAT 93–97
--- NOTE | 2024-03-27 | CONS_ITS ---
CONSULTATION ? CONSULTATION DATE: ??03/27/2024 ? REASON FOR CONSULTATION:?? Anemia, melanotic stools. ? HISTORY OF PRESENT ILLNESS:? Patient is an 88-year-old female with history of atrial fibrillation, on Eliquis; recent pacemaker insertion for bradycardia, as well as recent UTI, hypertension, hyperlipidemia, who presented to the emergency room on 03/26 with increased weakness.? She does report that she had melanotic stools for several days, which had subsequently resolved. ?She has also had a poor p.o. intake.? She was recently admitted on the , for several days, for a UTI; several days prior to that had undergone pacemaker insertion in [place].? She reports that she has not felt well since that time.? Workup in the emergency room revealed a drop in her hemoglobin to approximately 9.? It had been around 13 during her admission for the UTI.? She was admitted, hydrated, kept NPO.? She did have another drop in her hemoglobin by another gram overnight with hydration, but has had no bowel movement since her admission and has been hemodynamically stable.? Her Eliquis was held for the first time today.? Patient denies any history of aspirin or NSAID use, has been on multiple antibiotics for the UTI, but has just completed these.? She denies any previous EGD or colonoscopy.? Her only abdominal surgery has been a tubal ligation.? She has no family history of GI malignancy or inflammatory bowel disease.? ? ALLERGIES:? Patient has no known drug allergies.? ? HOME MEDICATIONS:? Include apixaban b.i.d., atorvastatin, Restasis eye drops, hydrochlorothiazide, losartan, magnesium oxide, methimazole, metoprolol and timolol eye drops.? ? PAST SURGICAL HISTORY:? As noted in the HPI. ? PAST MEDICAL HISTORY:? Also significant for hyperthyroidism, hyperlipidemia. ? SOCIAL HISTORY:? Patient is a .? Denies tobacco use, alcohol use or illicit drug use. ? FAMILY HISTORY:? Noncontributory. ? REVIEW OF SYSTEMS:? Ten system review of systems is negative for recent weight loss or weight gain.? She gas had increased fatigue.? No light-headedness.? No earache or tinnitus.? No sinus congestion.? No sore throat or hoarseness.? No chest pain, palpitations or syncope.? No chronic cough, shortness of breath or hemoptysis.? She denies abdominal pain, nausea or vomiting.? Has had anorexia. ?Has had some melena.? No diarrhea or constipation or decreased caliber of the stool.? No rectal bleeding.? No dysuria, frequency, urgency or hematuria.? No headaches, seizures or tremors.? No easy bruising or bleeding.? No heat or cold intolerance.? No polydipsia, polyphagia or polyuria. ? PHYSICAL EXAM:? VITAL SIGNS:? Patient is afebrile.? Blood pressure is 100/70.? Pulse is 70 and regular.? Respiratory rate is 18.? O2 saturation is 98% on room air.? GENERAL:? In general, she is an elderly female, currently in no acute distress. HEENT:? Normocephalic, atraumatic.? Sclerae anicteric.? Slightly pale.? Conjunctiva are pale.? Oral mucosa is moist, without lesions.? NECK:? Supple.? There is no adenopathy, thyromegaly or JVD. LUNGS:? Clear bilaterally. CARDIAC EXAM:? Regular rhythm and rate without appreciable murmurs, rubs or gallops. ABDOMEN:? Soft.? There are normal bowel sounds.? It is non-tender, non- distended.? There are no masses, hepatosplenomegaly or hernias.? No CVA tenderness. SKIN:? Warm and dry without lesions, rashes or ulcers. NEURO EXAM:? Non-focal.? Non-lateralizing.? Patient is awake, alert, oriented with appropriate affect. ASSESSMENT:? An 88-year-old female on Eliquis, with history of melena, now progressive anemia.? She also had mild elevation of her BUN with no increase in creatinine.? All of this is consistent with likely upper GI bleed.? She has had no bowel movement since admission. ? PLAN:? The plan is to continue supportive care, monitor the H&H and proceed with EGD under anesthesia tomorrow for further evaluation.? Indications, risks, benefits, alternatives of proceeding with EGD were explained extensively to the patient, including risks of bleeding, aspiration, esophageal/gastric/duodenal perforation or anesthetic complications.? All of her questions were answered.? Informed consent was obtained.? ? CC:? Noa Florez M.D.? [facility]
[2024-03-27] MEDS: PANTOPRAZOLE SODIUM 40 MG VIAL IV ×2 (03:59→16:03)
[2024-03-27 06:00] LABS: Basophils Percent Auto 0.3 % (0.2-2.0); Eosinophils Absolute Auto 0.1 10^3/uL (0.0-0.7); Hematocrit 26.2 % (36.0-48.0); Hemoglobin 8.7 g/dL (12.0-16.0); Immature Granulocytes Pct Auto 1.1 % (0.0-0.5); Lymphocytes Percent Auto 21.2 % (20.5-60.0); Mean Corpuscular HGB Conc 33.2 g/dL (29.9-35.2); Mean Corpuscular Hemoglobin 30.1 pg (26.7-34.0); Mean Corpuscular Volume 90.7 fL (81.0-99.0); Mean Platelet Volume 8.3 fL (9.5-13.5); Monocytes Absolute Auto 0.7 10^3/uL (0.3-0.8); Monocytes Percent Auto 7.5 % (1.7-12.0); Neutrophils Absolute Auto 6.4 10^3/uL (1.4-6.5); Neutrophils Percent Auto 68.9 % (43.0-75.0); Platelet Count 235 10^3/uL (150-450); Red Blood Count 2.89 10^6/uL (4.20-5.40); Red Cell Distribution Width 13.7 % (11.0-15.0); White Blood Count 9.2 10^3/uL (4.0-11.0)
[2024-03-27 06:23] LABS: Alanine Aminotransferase 20 U/L (14-59); Albumin Globulin Ratio 0.7; Albumin Level 2.3 g/dL (3.4-5.0); Alkaline Phosphatase 62 U/L (46-116); Anion Gap 14.3; Aspartate Amino Transferase 18 U/L (15-37); BUN Creatinine Ratio 39.4; Bilirubin Total 0.4 mg/dL (0.2-1.0); Calcium 8.2 mg/dL (8.5-10.1); Carbon Dioxide 24.7 mmol/L (21.0-32.0); Chloride 104 mmol/L (98-107); Estimated GFR (African America >60 (>=60 mL/min/1.73m^2); Estimated GFR (Non-African Ame >60 (>=60 mL/min/1.73m^2); Globulin 3.1 g/dL; Glucose 95 mg/dL (74-106); Sodium 139 mmol/L (136-145); Total Protein 5.4 g/dL (6.4-8.2)
--- NOTE | 2024-03-27 08:37 | P.PN_ITS ---
Progress Note: Subjective Subjective Interval history: Patient is sitting up in chair today. She is alert and oriented x 3. She notes being hungry since she has had only ice chips since midnight. No nausea or vomiting. No bowel movements, denies active bleeding. H&H 8.7 this morning with hypotension (90/55). Discussed General Surgery consult to take place today and will advance her diet if no surgical intervention takes place. Holding Eliquis. NO other issues or complaints. Exam Narrative Exam Narrative: General: Patient is alert, and oriented to person, place and time with normal affect, proper hygiene, cachexia Skin: no visible rashes, or ulcers, skin pallor Head: atraumatic, acephalic Eyes: PERRLA, no nystagmus present, conjunctiva clear, no scleral icterus Ears: normal gross auditory acuity Nose: symmetric, no discharge, no maxillary or frontal sinus tenderness Neck: no masses palpated Heart: Normal rate and rhythm, no murmurs/rubs/gallops Lungs: no audible wheezes, crackles and normal breath sounds all lung weinberg Abdomen: Normal audible bowel sounds, no distension, No palpable masses, no organomegaly, no rebound/guarding/ or rigidity Musculoskeletal: no swelling bilateral lower extremities Neuro: CN II-X grossly intact Constitutional Vital Signs, click to edit/add: Last Vital Signs Temp 97.7 F 03/27/24 04:00 Pulse 64 03/27/24 07:57 Resp 18 03/27/24 04:00 BP 99/61 03/27/24 04:00 Pulse Ox 97 03/27/24 04:00 O2 Del Method Room Air 03/27/24 04:00 Progress Note: Objective Labs Labs: Short CBC 03/26/24 03/26/24 03/27/24 Range/Units 13:11 21:25 05:42 WBC 11.2 H 10.0 9.2 (4.0-11.0) 10^3/uL Hgb 9.9 L 9.0 L 8.7 L (12.0-16.0) g/dL Hct 30.0 L 26.6 L 26.2 L (36.0-48.0) % Plt Count 233 232 235 (150-450) 10^3/uL BMP 03/26/24 03/27/24 13:11 05:42 Sodium 136 139 Potassium 4.5 4.0 Chloride 104 104 Carbon Dioxide 25.2 24.7 BUN 36.0 H 26.0 H Creatinine 0.75 0.66 Glucose 114 H 95 Calcium 8.5 8.2 L Liver Function 03/27/24 Range/Units 05:42 Total Bilirubin 0.4 (0.2-1.0) mg/dL AST 18 (15-37) U/L ALT 20 (14-59) U/L Alkaline Phosphatase 62 (46-116) U/L Albumin 2.3 L (3.4-5.0) g/dL Urine 03/26/24 Range/Units 14:15 Urine Color Lt. yellow (YELLOW) Urine Clarity Clear (CLEAR) Urine pH 6.0 (5.0-9.0) Ur Specific [place] 1.010 (1.005-1.025) Urine Protein Negative (NEG/TRACE) mg/dL Urine Glucose (UA) Negative (NEGATIVE) mg/dL Progress Note: A&P Assessment and Plan (1) Acute upper GI bleed: Assessment and Plan: continue IV protonix and PO Pepcid. Concern for Erosive gastritis vs mass. I have made her NPO after midnight, monitor H&H q8 hours. Type and screen. General Surgery consult and evaluation. If no plan for EGD inpatient will consider IV and oral contrasted CT. Hold Eliquis (2) Generalized weakness: Assessment and Plan: Most likely from #1, PT/OT evaluation. (3) Hyperlipidemia: Assessment and Plan: continue statin Qualifiers: Hyperlipidemia type: unspecified Qualified Code(s): E78.5 - Hyperlipidemia, unspecified (4) Primary hypertension: Assessment and Plan: patient hypotensive, continue metoprolol but hold others. Patient with Afib and do not want HR getting erratic (5) Hyperthyroidism: Assessment and Plan: hold methimazole for now, Check TFT's (6) Glaucoma: Assessment and Plan: resume drops Qualifiers: Glaucoma type: unspecified Laterality: unspecified laterality Qualified Code(s): H40.9 - Unspecified glaucoma (7) Pacemaker: Plan Patient is a DNRCCA holding prophylaxis other than SCD's due to bleeding. Patient is inpatient status and is expected to cross 2 midnights for her UGIB. Urinary Catheter Management Urinary Catheter Management Straight: Cath placed during this visit: yes Urethral indwelling: No Insertion date: 03/26/24 Insertion time: 14:10
--- NOTE | 2024-03-27 08:49 | CM.NOTE ---
Faxed Case Management referral, physician progress notes, and face sheet to [facility].
--- NOTE | 2024-03-27 09:58 | CM.NOTE ---
Rounds made with Dr. Diego, general surgery will consult on pt today for further recommendations. Pt remains NPO status. PT and OT also to evaluate pt for discharge planning.
--- NOTE | 2024-03-27 11:18 | CM.NOTE ---
Important Message From Medicare discussed with pt, pt verbalizes understanding and signs paper. Original given to pt and copy placed on pt's chart.
--- NOTE | 2024-03-27 11:26 | CM.NOTE ---
Precert started for [place].
--- NOTE | 2024-03-27 12:28 | P.GSCN_ITS ---
History of Present Illness Consult details Consult date: 03/27/24 Requesting physician: Glenny Diego Narrative: patient seen, examined, chart reviewed; consult dictated; 88 yo female with h/o afib, on Eliquis, recent pacemaker insertion; recent admission for UTI, admitted for weakness, anemia, had several melanotic stools several days ago; no bm last 2 days; Eliquis held today; plan EGD with anesthesia tomorrow for further evaluation; continue PPI, ok to eat today, NPO after mdn. [facility] Medical History (Updated 03/26/24 @ 17:58 by Ellen Cardoso RN) Bradycardia ?R00.1 - Bradycardia, unspecified (ICD-10) Atrial fibrillation ?I48.91 - Unspecified atrial fibrillation (ICD-10) Glaucoma ?H40.9 - Unspecified glaucoma (ICD-10) Hyperthyroidism ?E05.90 - Thyrotoxicosis, unspecified without thyrotoxic crisis or storm (ICD-10) Primary hypertension ?I10 - Essential (primary) hypertension (ICD-10) Hyperlipidemia ?E78.5 - Hyperlipidemia, unspecified (ICD-10) Generalized weakness ?R53.1 - Weakness (ICD-10) Acute UTI ?N39.0 - Urinary tract infection, site not specified (ICD-10) Pacemaker ?Z95.0 - Presence of cardiac pacemaker (ICD-10) Surgical History History of tubal ligation ?Z98.51 - Tubal ligation status (ICD-10) Family History Brother Family history of cancer Mother Family history of hypertension Family history of stroke Family history of CHF (congestive heart failure) Father Family history of myocardial infarction Social History Within the past year, how often did you have a drink containing alcohol: never Score interpretation: A score less than 3 is consistent with normal alcohol consumption. Smoking status: Former smoker Non-prescribed substance use: denies use Highest level of school completed/degree received: high school graduate Little interest or pleasure in doing things: not at all Feeling down, depressed, or hopeless: not at all Meds Home Medications and Allergies Home Medications ?Medication ?Instructions ?Recorded ?Confirmed ?Type apixaban 2.5 mg tablet 2.5 mg PO BID 03/16/24 03/26/24 History atorvastatin 10 mg tablet 10 mg PO DAILY 03/16/24 03/26/24 History losartan 50 mg tablet 50 mg PO DAILY 03/16/24 03/26/24 History methimazole 5 mg tablet 5 mg PO .3xweek 03/16/24 03/26/24 History metoprolol tartrate 25 mg tablet 25 mg PO BID 03/16/24 03/26/24 History cefdinir 300 mg capsule 600 mg (2 x 300 mg) PO DAILY #20 03/18/24 03/26/24 Rx caps ondansetron 4 mg disintegrating 4 mg PO Q6H PRN nausea and 03/18/24 03/26/24 Rx tablet vomiting #10 tabs cyclosporine 0.05 % eye drops in a 1 drp ophthalmic (eye) BID 03/26/24 03/26/24 History dropperette (Restasis) hydrochlorothiazide 12.5 mg tablet 12.5 mg PO DAILY 03/26/24 03/26/24 History magnesium oxide 400 mg (241.3 mg 400 mg PO DAILY 03/26/24 03/26/24 History magnesium) tablet timolol maleate 0.5 % eye drops 1 drp ophthalmic (eye) BID 03/26/24 03/26/24 Hi story Allergies Allergy/AdvReac Type Severity Reaction Status Date / Time No Known Drug Allergies Allergy Verified 03/26/24 12:21 Exam Constitutional Vital Signs, click to edit/add: Last Vital Signs Temp 97.9 F 03/27/24 12:00 Pulse 86 03/27/24 12:00 Resp 18 03/27/24 12:00 BP 111/69 03/27/24 12:00 Pulse Ox 94 L 03/27/24 12:00 O2 Del Method Room Air 03/27/24 12:00 Results Labs Labs: Abnormal lab results 03/26/24 03/26/24 03/26/24 Range/Units 13:11 13:35 14:15 WBC 11.2 H (4.0-11.0) 10^3/uL RBC 3.26 L (4.20-5.40) 10^6/uL Hgb 9.9 L (12.0-16.0) g/dL Hct 30.0 L (36.0-48.0) % MPV 8.4 L (9.5-13.5) fL Neut % (Auto) 81.9 H (43.0-75.0) % Lymph % (Auto) 11.2 L (20.5-60.0) % Eos % (Auto) 0.5 L (0.9-7.0) % Neut # (Auto) 9.2 H (1.4-6.5) 10^3/uL Abs Immat Gran (auto) 0.12 H (0.00-0.03) 10^3/uL Imm/Tot Granulo (auto) 1.1 H (0.0-0.5) % BUN 36.0 H (7.0-18.0) mg/dL Glucose 114 H (74-106) mg/dL Calcium (8.5-10.1) mg/dL Total Protein (6.4-8.2) g/dL Albumin (3.4-5.0) g/dL Urine Ketones Trace A (NEGATIVE) mg/dL Urine WBC 0-2 A (NONE SEEN) #/HPF Urine Bacteria Trace A (NONE SEEN) #/HPF Stool Occult Blood Positive A 03/26/24 03/27/24 Range/Units 21:25 05:42 WBC (4.0-11.0) 10^3/uL RBC 2.92 L 2.89 L (4.20-5.40) 10^6/uL Hgb 9.0 L 8.7 L (12.0-16.0) g/dL Hct 26.6 L 26.2 L (36.0-48.0) % MPV 8.5 L 8.3 L (9.5-13.5) fL Neut % (Auto) (43.0-75.0) % Lymph % (Auto) (20.5-60.0) % Eos % (Auto) 0.8 L (0.9-7.0) % Neut # (Auto) 6.8 H (1.4-6.5) 10^3/uL Abs Immat Gran (auto) 0.09 H 0.10 H (0.00-0.03) 10^3/uL Imm/Tot Granulo (auto) 0.9 H 1.1 H (0.0-0.5) % BUN 26.0 H (7.0-18.0) mg/dL Glucose (74-106) mg/dL Calcium 8.2 L (8.5-10.1) mg/dL Total Protein 5.4 L (6.4-8.2) g/dL Albumin 2.3 L (3.4-5.0) g/dL Urine Ketones (NEGATIVE) mg/dL Urine WBC (NONE SEEN) #/HPF Urine Bacteria (NONE SEEN) #/HPF Stool Occult Blood Diabetes panel 03/26/24 03/27/24 Range/Units 13:11 05:42 Sodium 136 139 (136-145) mmol/L Potassium 4.5 4.0 (3.5-5.1) mmol/L Chloride 104 104 (98-107) mmol/L Carbon Dioxide 25.2 24.7 (21.0-32.0) mmol/L BUN 36.0 H 26.0 H (7.0-18.0) mg/dL Creatinine 0.75 0.66 (0.55-1.02) mg/dL Glucose 114 H 95 (74-106) mg/dL Calcium 8.5 8.2 L (8.5-10.1) mg/dL AST 18 (15-37) U/L ALT 20 (14-59) U/L Alkaline Phosphatase 62 (46-116) U/L Total Protein 5.4 L (6.4-8.2) g/dL Albumin 2.3 L (3.4-5.0) g/dL Calcium panel 03/26/24 03/27/24 Range/Units 13:11 05:42 Calcium 8.5 8.2 L (8.5-10.1) mg/dL Albumin 2.3 L (3.4-5.0) g/dL Pituitary panel 03/26/24 03/27/24 Range/Units 13:11 05:42 Sodium 136 139 (136-145) mmol/L Potassium 4.5 4.0 (3.5-5.1) mmol/L Chloride 104 104 (98-107) mmol/L Carbon Dioxide 25.2 24.7 (21.0-32.0) mmol/L BUN 36.0 H 26.0 H (7.0-18.0) mg/dL Creatinine 0.75 0.66 (0.55-1.02) mg/dL Glucose 114 H 95 (74-106) mg/dL Calcium 8.5 8.2 L (8.5-10.1) mg/dL Adrenal panel 03/26/24 03/27/24 Range/Units 13:11 05:42 Sodium 136 139 (136-145) mmol/L Potassium 4.5 4.0 (3.5-5.1) mmol/L Chloride 104 104 (98-107) mmol/L Carbon Dioxide 25.2 24.7 (21.0-32.0) mmol/L BUN 36.0 H 26.0 H (7.0-18.0) mg/dL Creatinine 0.75 0.66 (0.55-1.02) mg/dL Glucose 114 H 95 (74-106) mg/dL Calcium 8.5 8.2 L (8.5-10.1) mg/dL Total Bilirubin 0.4 (0.2-1.0) mg/dL AST 18 (15-37) U/L ALT 20 (14-59) U/L Alkaline Phosphatase 62 (46-116) U/L Total Protein 5.4 L (6.4-8.2) g/dL Albumin 2.3 L (3.4-5.0) g/dL All other labs normal. Assessment and Plan Assessment and Plan (1) Acute upper GI bleed: (2) Generalized weakness: (3) Hyperlipidemia: Qualifiers: Hyperlipidemia type: unspecified Qualified Code(s): E78.5 - Hyperlipidemia, unspecified (4) Primary hypertension: (5) Hyperthyroidism: (6) Glaucoma: Qualifiers: Glaucoma type: unspecified Laterality: unspecified laterality Qualified Code(s): H40.9 - Unspecified glaucoma (7) Pacemaker:
[2024-03-27] MEDS: METOPROLOL TARTRATE 25 MG TABLET PO (12:30)
[2024-03-27] MEDS: TIMOLOL MALEATE 0.5% OP SOL 100 DROPS/5 ML BOTTLE 1 DROP OP ×2 (12:30→20:40)
[2024-03-27] MEDS: ATORVASTATIN CALCIUM 10 MG TABLET PO (12:31)
--- NOTE | 2024-03-27 12:43 | SWNOTE1 ---
[facility] has accepted and started precert. ELAN called both daughters, left one a message and spoke to the other.
[2024-03-27 13:35] LABS: Basophils Absolute Auto 0.1 10^3/uL (0.0-0.1); Basophils Percent Auto 0.5 % (0.2-2.0); Eosinophils Absolute Auto 0.1 10^3/uL (0.0-0.7); Eosinophils Percent Auto 0.5 % (0.9-7.0); Hematocrit 29.6 % (36.0-48.0); Hemoglobin 9.8 g/dL (12.0-16.0); Immature Granulocytes Abs Auto 0.15 10^3/uL (0.00-0.03); Immature Granulocytes Pct Auto 1.1 % (0.0-0.5); Lymphocytes Percent Auto 14.7 % (20.5-60.0); Mean Corpuscular HGB Conc 33.1 g/dL (29.9-35.2); Mean Corpuscular Hemoglobin 30.4 pg (26.7-34.0); Mean Corpuscular Volume 91.9 fL (81.0-99.0); Mean Platelet Volume 8.5 fL (9.5-13.5); Monocytes Absolute Auto 0.7 10^3/uL (0.3-0.8); Monocytes Percent Auto 5.4 % (1.7-12.0); Neutrophils Absolute Auto 10.7 10^3/uL (1.4-6.5); Neutrophils Percent Auto 77.8 % (43.0-75.0); Platelet Count 258 10^3/uL (150-450); Red Blood Count 3.22 10^6/uL (4.20-5.40); Red Cell Distribution Width 13.7 % (11.0-15.0); White Blood Count 13.8 10^3/uL (4.0-11.0)
[2024-03-27] MEDS: BISACODYL 10 MG RECTAL SUPPOSITORY PR (14:46)
--- NOTE | 2024-03-27 14:47 | SWNOTE1 ---
ELAN faxed over surgery consult note to Janessa at [place].
[2024-03-27] MEDS: FAMOTIDINE 20 MG TABLET PO (20:40)
[2024-03-27 21:03] LABS: Basophils Percent Auto 0.3 % (0.2-2.0); Eosinophils Percent Auto 0.3 % (0.9-7.0); Hematocrit 25.8 % (36.0-48.0); Hemoglobin 8.4 g/dL (12.0-16.0); Immature Granulocytes Pct Auto 0.6 % (0.0-0.5); Lymphocytes Absolute Auto 1.6 10^3/uL (1.2-3.8); Mean Corpuscular HGB Conc 32.6 g/dL (29.9-35.2); Mean Corpuscular Volume 92.1 fL (81.0-99.0); Mean Platelet Volume 8.4 fL (9.5-13.5); Monocytes Absolute Auto 0.7 10^3/uL (0.3-0.8); Monocytes Percent Auto 4.4 % (1.7-12.0); Neutrophils Absolute Auto 13.3 10^3/uL (1.4-6.5); Neutrophils Percent Auto 84.4 % (43.0-75.0); Platelet Count 257 10^3/uL (150-450); Red Cell Distribution Width 13.7 % (11.0-15.0); White Blood Count 15.8 10^3/uL (4.0-11.0)
[2024-03-28] VITALS (28 sets, daily range): BP systolic 80–126; BP diastolic 43–83; PULSE 60–95; TEMP 36.3–37.1; O2SAT 92–100
[2024-03-28] MEDS: PANTOPRAZOLE SODIUM 40 MG VIAL IV ×2 (04:05→16:08)
[2024-03-28 06:30] LABS: Basophils Percent Auto 0.3 % (0.2-2.0); Eosinophils Absolute Auto 0.1 10^3/uL (0.0-0.7); Eosinophils Percent Auto 0.5 % (0.9-7.0); Hematocrit 24.1 % (36.0-48.0); Hemoglobin 7.9 g/dL (12.0-16.0); Immature Granulocytes Abs Auto 0.11 10^3/uL (0.00-0.03); Immature Granulocytes Pct Auto 0.9 % (0.0-0.5); Lymphocytes Absolute Auto 1.9 10^3/uL (1.2-3.8); Lymphocytes Percent Auto 15.5 % (20.5-60.0); Mean Corpuscular HGB Conc 32.8 g/dL (29.9-35.2); Mean Corpuscular Hemoglobin 30.2 pg (26.7-34.0); Mean Platelet Volume 8.6 fL (9.5-13.5); Monocytes Absolute Auto 0.8 10^3/uL (0.3-0.8); Monocytes Percent Auto 6.6 % (1.7-12.0); Neutrophils Absolute Auto 9.4 10^3/uL (1.4-6.5); Neutrophils Percent Auto 76.2 % (43.0-75.0); Platelet Count 240 10^3/uL (150-450); Red Blood Count 2.62 10^6/uL (4.20-5.40); White Blood Count 12.4 10^3/uL (4.0-11.0)
[2024-03-28 06:39] LABS: Alanine Aminotransferase 18 U/L (14-59); Albumin Globulin Ratio 0.9; Albumin Level 2.4 g/dL (3.4-5.0); Alkaline Phosphatase 62 U/L (46-116); Anion Gap 12.9; Aspartate Amino Transferase 18 U/L (15-37); BUN Creatinine Ratio 41.4; Bilirubin Total 0.5 mg/dL (0.2-1.0); Calcium 8.1 mg/dL (8.5-10.1); Carbon Dioxide 25.7 mmol/L (21.0-32.0); Chloride 106 mmol/L (98-107); Estimated GFR (African America >60 (>=60 mL/min/1.73m^2); Estimated GFR (Non-African Ame >60 (>=60 mL/min/1.73m^2); Globulin 2.8 g/dL; Glucose 105 mg/dL (74-106); Potassium 4.6 mmol/L (3.5-5.1); Sodium 140 mmol/L (136-145); Total Protein 5.2 g/dL (6.4-8.2)
[2024-03-28] MEDS: LACTATED RINGER'S SOLUTION 1,000 ML 50 ML IV (07:20)
--- NOTE | 2024-03-28 08:08 | OP_ITS ---
OP Note ? OPERATION DATE: ??03/28/2024 ? PREOPERATIVE DIAGNOSIS:? Upper GI bleed, anemia, melanotic stool. ? POSTOPERATIVE DIAGNOSIS:? Kissing duodenal ulcers, 1 cm and 7 mm, with whitish- tse base. . No visible vessel or black aguilar.? No active bleeding.? There was some old blood clot within the stomach and duodenum that was irrigated clear.? ? PROCEDURE:? EGD. ? ANESTHESIA:? Monitored anesthesia care. ? ESTIMATED BLOOD LOSS:? Zero. ? INDICATIONS AND CONSENT:? Patient is an 88-year-old female with history of weakness.? Workup revealed anemia.? She also complains of some melanotic stools and some increase in her BUN without creatinine elevation, concerning for upper GI bleed.? Her Eliquis has now been held for two days.? Indications, risks, benefits, alternatives of proceeding with EGD were explained extensively to the patient, including the risks of bleeding, aspiration, esophageal/gastric/duodenal perforation or anesthetic complications.? All of her questions were answered.? Informed consent was obtained. ? PROCEDURE:? Patient brought to the operating room, placed in the left lateral decubitus position.? Monitored anesthesia care was provided.? Bite block was placed in the patient?s mouth.? Scope was inserted into the oropharynx. ?Under direct visualization, it was advanced into the esophagus, past the cricopharyngeus, down to the stomach.? There was a small, old clot within the stomach that was irrigated away from the area, which was normal mucosa.? The pylorus was traversed down to the duodenum, where there was noted to be large kissing ulcers at the first bend of the duodenum.? There was a shallow, tse- white, exudative base with no active bleeding.? The largest ulcer was 1 cm.? The smaller one was approximately 7 mm.? There was no visible vessel or black aguilar.? No active bleeding.? The scope was retroflexed back in the stomach, and there was a small hiatal hernia.? There was very mild distal esophagitis without Cr?s changes.? The remainder of the esophagus was unremarkable.? The scope was then withdrawn.? Patient tolerated procedure well, was sent to recovery room in good condition. ? CC:? Noa Florez M.D.? [facility]
--- NOTE | 2024-03-28 08:52 | PC.NURSE ---
Patient returns from EGD procedure. Awake. A/O x 3.
--- NOTE | 2024-03-28 08:59 | PM.PN ---
Progress Note: Subjective Subjective Interval history: Patient went to the OR today for EGD. Discussed findings with surgeon, 2 duodenal ulcers present with no acute bleeding but old blood, gastritis. Dr. Rivera recommended low residual/bland diet, addition of Carafate and added. Due to the drop in H&H with passing of blood in stool and blood in stomach, also patient is a heart patient with history of CHF. Patient is amendable to getting blood. She will be transfused with 2 units PRBC's. Exam Narrative Exam Narrative: General: Patient is alert, and oriented to person, place and time with normal affect, proper hygiene, cachexia Skin: no visible rashes, or ulcers, skin pallor Head: atraumatic, acephalic Eyes: PERRLA, no nystagmus present, conjunctiva clear, no scleral icterus Ears: normal gross auditory acuity Nose: symmetric, no discharge, no maxillary or frontal sinus tenderness Neck: no masses palpated Heart: Normal rate and rhythm, no murmurs/rubs/gallops Lungs: no audible wheezes, crackles and normal breath sounds all lung weinberg Abdomen: Normal audible bowel sounds, no distension, No palpable masses, no organomegaly, no rebound/guarding/ or rigidity Musculoskeletal: no swelling bilateral lower extremities Neuro: CN II-X grossly intact Constitutional Vital Signs, click to edit/add: Last Vital Signs Temp 97.7 F 03/28/24 08:15 Pulse 60 03/28/24 08:45 Resp 16 03/28/24 08:45 BP 99/45 L 03/28/24 08:45 Pulse Ox 96 03/28/24 08:45 O2 Del Method Room Air 03/28/24 08:45 Progress Note: Objective Labs Labs: Short CBC 03/27/24 03/27/24 03/28/24 Range/Units 13:20 20:56 06:12 WBC 13.8 H 15.8 H 12.4 H (4.0-11.0) 10^3/uL Hgb 9.8 L 8.4 L 7.9 L (12.0-16.0) g/dL Hct 29.6 L 25.8 L 24.1 L (36.0-48.0) % Plt Count 258 257 240 (150-450) 10^3/uL BMP 03/28/24 06:12 Sodium 140 Potassium 4.6 Chloride 106 Carbon Dioxide 25.7 BUN 29.0 H Creatinine 0.70 Glucose 105 Calcium 8.1 L Liver Function 03/28/24 Range/Units 06:12 Total Bilirubin 0.5 (0.2-1.0) mg/dL AST 18 (15-37) U/L ALT 18 (14-59) U/L Alkaline Phosphatase 62 (46-116) U/L Albumin 2.4 L (3.4-5.0) g/dL Progress Note: A&P Assessment and Plan (1) Acute upper GI bleed: Assessment and Plan: continue IV protonix and PO Pepcid, add carafate. Erosive gastritis and duodenal ulcers seen on EGD. Hold Eliquis, h.Pylori pending. low residual diet. (2) Duodenal ulcer: Assessment and Plan: see on EGD, see #1 (3) Generalized weakness: Assessment and Plan: Most likely from #1, PT/OT evaluation. (4) Hyperlipidemia: Assessment and Plan: continue statin Qualifiers: Hyperlipidemia type: unspecified Qualified Code(s): E78.5 - Hyperlipidemia, unspecified (5) Primary hypertension: Assessment and Plan: patient hypotensive, continue metoprolol but hold others. Patient with Afib and do not want HR getting erratic (6) Hyperthyroidism: Assessment and Plan: hold methimazole for now, Check TFT's (7) Glaucoma: Assessment and Plan: resume drops Qualifiers: Glaucoma type: unspecified Laterality: unspecified laterality Qualified Code(s): H40.9 - Unspecified glaucoma (8) Pacemaker: Plan Patient is a DNRCCA holding prophylaxis other than SCD's due to bleeding. Patient had EGD today, Getting transfusion today, most likely will need 1-2 more days of medically necessary care. Urinary Catheter Management Urinary Catheter Management Straight: Cath placed during this visit: yes Urethral indwelling: No Insertion date: 03/26/24 Insertion time: 14:10
[2024-03-28] MEDS: METOPROLOL TARTRATE 25 MG TABLET PO ×2 (09:51→20:21)
[2024-03-28] MEDS: ATORVASTATIN CALCIUM 10 MG TABLET PO (09:51)
[2024-03-28] MEDS: TIMOLOL MALEATE 0.5% OP SOL 100 DROPS/5 ML BOTTLE 1 DROP OP ×2 (09:51→22:05)
--- NOTE | 2024-03-28 10:27 | REH.PTDLY ---
Physical Therapy Daily Note PT Daily Note/Assess Start: 03/27/24 08:32 Freq: Status: Active Protocol: Document 03/28/24 10:25 LITTLE (Rec: 03/28/24 10:27 LITTLE [id number]) Visit Not Completed Visit Not Completed Due to: Pt refusing Other Reason Visit Not Completed Attempted earlier and pt was eating breakfast, returned and pt just getting back into bed with nursing. Pt states she is exhausted and just wants to rest. Physical Therapy Daily Note/Assessment Time In 10:20 Time Out 10:22
[2024-03-28] MEDS: SUCRALFATE 1 GM TABLET PO ×3 (12:06→22:06)
[2024-03-28] MEDS: 0.9 % SODIUM CHLORIDE 250 ML 10 ML IV (12:40)
--- NOTE | 2024-03-28 12:54 | CM.NOTE ---
Rounds made with Dr. Diego, discussed with pt and family EGD findings and plan of care. No discharge today, advance diet.
--- NOTE | 2024-03-28 13:37 | REH.PTDLY ---
Physical Therapy Daily Note PT Daily Note/Assess Start: 03/27/24 08:32 Freq: Status: Active Protocol: Document 03/28/24 13:32 BRIANSAMANTHA (Rec: 03/28/24 13:37 LITTLE [id number]) Physical Therapy Daily Note/Assessment Time In 13:10 Time Out 13:30 Subjective Pt in bed upon arrival, receiving blood. Nursing ok'd rx with patient. Pt has no complaints at this time. Therapeutic Exercise Minutes (minutes) 11 Therapeutic Exercise Units 1 Therapeutic Exercise Treatment Instructed in B LE AP, QS, HS, hip abd, heel slides and SLR in supine 10x ea followed by B LE seated LAQ, marching, and step outs 10x ea for improved strength. Pt has good ROM with exs. Therapeutic Activity Minutes (minutes) 8 Therapeutic Activity Units 0 Therapeutic Activity Comments Min A with supine to sit transfer. CGA with sit to stand transfer. Gait training with RW CGA for 70 feet with pt ambulating with small shuffled steps at quick, cues for pt to take larger strides. Minimal change in stride length, but pt does slow down once cued. Pt returns to supine with Min A and reports of R sciatic pain when lying down. Total Therapy Minutes 19 Total Physical Therapy Units 1 Daily Note Summary Pt continues to have small shuffled gait pattern when ambulating and needs Min A with transferring in and out of bed. [facility] for [facility] and mobility for safety.
--- NOTE | 2024-03-28 14:05 | SWNOTE1 ---
Updated PT/OT notes, labs, vitals, and nursing notes sent to [facility] for precert.
--- NOTE | 2024-03-28 15:40 | SWNOTE1 ---
A call was received by pt's insurance and a peer to peer is requested from the doctor. ELAN provided Dr. Diego with the peer to peer information and advised that a call has to be made by 10:30am or the insurance will make there own decision without peer to peer.
--- NOTE | 2024-03-28 16:01 | SWNOTE1 ---
SW called and updated pt's daughter Destiny in regards to peer to peer. She voiced understanding as they went through this with pace maker. ELAN to update daughter tomorrow once we know more.
[2024-03-28 19:54] LABS: Hematocrit 30.9 % (36.0-48.0); Hemoglobin 10.4 g/dL (12.0-16.0)
[2024-03-28] MEDS: FAMOTIDINE 20 MG TABLET PO (22:05)
[2024-03-29] VITALS (14 sets, daily range): BP systolic 106–118; BP diastolic 62–72; PULSE 60–72; TEMP 36.4–36.6; O2SAT 95–98
[2024-03-29] MEDS: PANTOPRAZOLE SODIUM 40 MG VIAL IV (03:56)
[2024-03-29] MEDS: ACETAMINOPHEN 325 MG TABLET 650 MG PO (04:03)
[2024-03-29 06:31] LABS: Alanine Aminotransferase 13 U/L (14-59); Albumin Globulin Ratio 0.7; Albumin Level 2.1 g/dL (3.4-5.0); Alkaline Phosphatase 62 U/L (46-116); Anion Gap 12.2; Aspartate Amino Transferase 13 U/L (15-37); Bilirubin Total 0.7 mg/dL (0.2-1.0); Calcium 8.3 mg/dL (8.5-10.1); Carbon Dioxide 24.8 mmol/L (21.0-32.0); Chloride 107 mmol/L (98-107); Estimated GFR (African America >60 (>=60 mL/min/1.73m^2); Estimated GFR (Non-African Ame >60 (>=60 mL/min/1.73m^2); Globulin 2.9 g/dL; Glucose 103 mg/dL (74-106); Sodium 140 mmol/L (136-145)
[2024-03-29] MEDS: SUCRALFATE 1 GM TABLET PO ×2 (07:43→12:19)
--- NOTE | 2024-03-29 09:00 | PM.DS1 ---
DS: Providers Provider Date of admission: 03/26/24 17:34 Primary care physician: NOA JOVEL Attending physician on admission: Glenny Diego Consults: 03/26/24 16:58 Consult to General Surgeon Routine Consulting Provider: Ryan Rivera Reason for consultation: Upper GI bleed Has provider been notified: Yes Occupational Therapy Eval and Treat Routine Reason for consultation: weakness Has provider been notified: No Physical Therapy Eval and Treat Routine Reason for consultation: weakness Has provider been notified: No Discharging clinician: Glenny Diego DS: Diagnosis Discharge Diagnosis (1) Acute upper GI bleed: (2) Duodenal ulcer: (3) Generalized weakness: (4) Hyperlipidemia: Qualifiers: Hyperlipidemia type: unspecified Qualified Code(s): E78.5 - Hyperlipidemia, unspecified (5) Primary hypertension: (6) Hyperthyroidism: (7) Glaucoma: Qualifiers: Glaucoma type: unspecified Laterality: unspecified laterality Qualified Code(s): H40.9 - Unspecified glaucoma (8) Pacemaker: DS: Summary Hospital Course Hospital Course: Patient is a 88 year old white female with past medical history of Pacemaker (on Eliquis), Afib, HLD, HTN, Hyperthyroidism, glaucoma who presented today to the ER for increased weakness. She also notes Dark stools. She recently was treated here for acute UTI and just finished her course of Cefdinir. She denies fevers or chills. No nausea/vomiting or diarrhea. She denies any recent bleeding issues. She is compliant with her Eliquis and last dose was this morning. She has also become very dependent for her ADL's, weakness and higher risk of falls. Family/daughters concern about her safety at home and the need for total home care. Daughter report rapid decline since getting the pacemaker. She rarely eats, gets tired just sitting at the table. She spends most of her day in bed and needs 100% assistence with ADL's. She has been treated with antibiotics for persistent UTI's several times over the last few months, no appetite or strength. She notes infrequent bowel movements and just started to be black in nature. She has been nauseated, has been taking alot of Zofran. She has never had EGD or colonoscopy in the past. She is ex smoker, quit in July. No personal cancer history. Code status was discussed with patient and daughters and patient wishes to be a DNRCCA, paper was signed and updated to the chart. ER findings of Hb 9.9 down from 13.5. Stool was Hemoccult positive. Patient went to the OR 03/28/24 for EGD. Discussed findings with surgeon, 2 duodenal ulcers present with no acute bleeding but old blood, gastritis. Dr. Rivera recommended low residual/bland diet, addition of Carafate, along with pepcid and protonix. Will continue to hold eliquis until further evaluation by her Television Technician on 04/02/24. If she would have to resume eliquis, Dr. Rivera recommends EGD in 6 weeks. H.pylori pending. She is eating well, no pain. She was transfused with 2 units PRBC's. Discharge hemoglobin was 10.4 this morning. No acute blood loss. Urine culture negative for bacteria. She will be discharged to the long-term facility today for rehab. She close follow up with her PCP and will need a CBC. Dr. Rivera in 2-3 weeks and with Cardiology to discuss resuming eliquis or consider of watchman or aspirin. Status at Discharge Functional status at discharge: uses cane/walker Overall status at discharge: patient is not back to baseline Time Spent with Patient Time attestation: Total time spent providing and/or coordinating discharge services: Time spent: greater than 30 minutes Exam Narrative Exam Narrative: General: Patient is alert, and oriented to person, place and time with normal affect, proper hygiene, cachexia Skin: no visible rashes, or ulcers, skin pallor Head: atraumatic, acephalic Eyes: PERRLA, no nystagmus present, conjunctiva clear, no scleral icterus Ears: normal gross auditory acuity Nose: symmetric, no discharge, no maxillary or frontal sinus tenderness Neck: no masses palpated Heart: Normal rate and rhythm, no murmurs/rubs/gallops Lungs: no audible wheezes, crackles and normal breath sounds all lung weinberg Abdomen: Normal audible bowel sounds, no distension, No palpable masses, no organomegaly, no rebound/guarding/ or rigidity Musculoskeletal: no swelling bilateral lower extremities Neuro: CN II-X grossly intact Constitutional Vital Signs, click to edit/add: Last Vital Signs Temp 97.6 F 03/29/24 07:46 Pulse 64 03/29/24 08:00 Resp 16 03/29/24 07:46 BP 113/71 03/29/24 07:46 Pulse Ox 97 03/29/24 07:46 O2 Del Method Room Air 03/29/24 07:46 DS: Data Data Completed and Pending Labs on day of discharge: Labs from last 24 hours 03/29/24 03/28/24 03/26/24 05:48 19:45 17:18 Hgb 10.4 L Hct 30.9 L Sodium 140 Potassium 4.0 Chloride 107 Carbon Dioxide 24.8 Anion Gap 12.2 BUN 24.0 H Creatinine 0.80 Est GFR ( Amer) >60 Est GFR (Non-Af Amer) >60 BUN/Creatinine Ratio 30.0 Glucose 103 Calcium 8.3 L Total Bilirubin 0.7 AST 13 L ALT 13 L Alkaline Phosphatase 62 Total Protein 5.0 L Albumin 2.1 L Globulin 2.9 Albumin/Globulin Ratio 0.7 Blood Type A Positive Antibody Screen Negative Crossmatch See Detail Discharge Plan Discharge Disposition: Xfer SNF Condition: Fair Discharge Medications: New acetaminophen 325 mg Tablet 650 mg PO Q4H PRN (Reason: Pain) Qty: 7 0RF sucralfate 1 gram Tablet 1 g PO ACHS 30 Days Qty: 120 0RF famotidine 20 mg Tablet 20 mg PO Q24H 30 Days Qty: 30 0RF omeprazole 40 mg capsule,delayed release(DR/EC) 40 mg PO DAILY 30 Days Qty: 30 0RF Continued cyclosporine [Restasis] 0.05 % dropperette 1 drp OPHTHALMIC (EYE) BID hydrochlorothiazide 12.5 mg tablet 12.5 mg PO DAILY magnesium oxide 400 mg (241.3 mg magnesium) tablet 400 mg PO DAILY timolol maleate 0.5 % drops 1 drp OPHTHALMIC (EYE) BID Rx Instructions: both eyes atorvastatin 10 mg tablet 10 mg PO DAILY losartan 50 mg tablet 50 mg PO DAILY methimazole 5 mg tablet 5 mg PO .3xweek metoprolol tartrate 25 mg tablet 25 mg PO BID Held apixaban 2.5 mg tablet 2.5 mg PO BID Hold Instructions: Resume on 04/02/24. 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 Forms: Portal Instructions Follow Up Appointments: Follow up with Cardiology Dr. Quiroz on 04/02/24 at 4:40pm Phone number [phone] [place] [address] , [place], [place], Call [phone] to schedule appointment with primary care Noa Jovel within 1 week Please call to make appointment with Dr. RIVERA General surgery follow up for 2-3 weeks. Discharge location: [facility]
[2024-03-29] MEDS: TIMOLOL MALEATE 0.5% OP SOL 100 DROPS/5 ML BOTTLE 1 DROP OP (09:08)
[2024-03-29] MEDS: ATORVASTATIN CALCIUM 10 MG TABLET PO (09:08)
[2024-03-29] MEDS: METOPROLOL TARTRATE 25 MG TABLET PO (09:08)
--- NOTE | 2024-03-29 09:36 | SWNOTE1 ---
Dr. Diego did complete peer to peer last evening. ELAN messaged Alicja and Janessa at [facility] to see if they have heard from insurance. Alicja will check with there precert team and get back to ELAN.
--- NOTE | 2024-03-29 09:58 | REH.PTDLY ---
Physical Therapy Daily Note PT Daily Note/Assess Start: 03/27/24 08:32 Freq: Status: Active Protocol: Document 03/29/24 09:05 LITTLE (Rec: 03/29/24 09:58 KSTEINLE [id number]) Physical Therapy Daily Note/Assessment Time In 08:48 Time Out 09:05 Subjective Pt up in recliner chair upon arrival, no new complaints today. Feeling a little better after having blood transfusion yesterday pt reports. Therapeutic Exercise Minutes (minutes) 8 Therapeutic Exercise Units 1 Therapeutic Exercise Treatment Instructed in B LE AP, heel slides, hip abd slides, QS, and SLR 10x ea with legs elevated in chair. Pt fatigues with SLR and states this is the hardest one. With legs lowered instructed pt in B LE LAQ, marching, hip add squeezes, and hip IR/ER 15x ea for improved strength. Therapeutic Activity Minutes (minutes) 7 Therapeutic Activity Units 0 Therapeutic Activity Comments CGA with sit to stand transfers from chair. Gait training with RW with cues for pt to take larger strides to avoid shuffling of feet and to pay attention to the sound her feet make. If she hears her feet dragging on the floor to pick them up. Pt does comply and changes gait as notices herself beginning to shuffle. Pt does a better job and slowing down with gait today as well. Sill ambulates CGA for safety due to pt's nature of shuffling gait. Pt returns to chair in room with chair alarm on for safety. Total Therapy Minutes 15 Total Physical Therapy Units 1 Daily Note Summary Pt more aware of gait pattern today and is able to self correct once therapist educates pt on what to pay attention to. Pt does easily forget task at hand with exs when distracted. Pt would benefit from SNF to better improve strength and gait for safety.
--- NOTE | 2024-03-29 11:39 | CM.NOTE ---
Rounds made with Dr. Diego, pt will discharge to [facility] for skilled therapy when medically stable.
--- NOTE | 2024-03-29 12:51 | SWNOTE1 ---
ELAN received message from [facility]ja [employer] [place] and they got the approval. SW let nurse and doctor know. Doctor is checking with general surgery to make sure pt is clear for discharge. SW completed HENS online.
--- NOTE | 2024-03-29 14:01 | SWNOTE1 ---
Pt is all cleared to be discharged today. Pt's daughter will be transporting her to [facility]. Daughter going home to get clothes then will be back. ELAN completed packet. ELAN faxed over dc med rec, dc summary, and CRF to [facility]. Pt is going there skilled. ELAN let [facility] know that family will be bringing patient and they will be leaving here around 3:00.
== END 2024-03-29 16:05 | DRG 379 ==
LOC: ER 16:25 → MS 17:48
PROVIDERS: Surgery; Admitting Provider Family Medicine; Emergency Provider Emergency Medicine; PCP Family Medicine; Visit Provider Family Medicine
PROC: 0DJ08ZZ Inspection of Upper Intestinal Tract, Via Natural or Artificial Opening Endoscopic (ICD-10-PCS; principal; 2024-03-28 07:55)
DX: K26.4 Chronic or unspecified duodenal ulcer with hemorrhage (principal); K29.01 Acute gastritis with bleeding; R53.1 Weakness; E78.5 Hyperlipidemia, unspecified; E05.90 Thyrotoxicosis, unspecified without thyrotoxic crisis or storm; H40.9 Unspecified glaucoma; D64.9 Anemia, unspecified; I50.9 Heart failure, unspecified; I11.0 Hypertensive heart disease with heart failure; I48.91 Unspecified atrial fibrillation; K44.9 Diaphragmatic hernia without obstruction or gangrene; Z79.01 Long term (current) use of anticoagulants; Z95.0 Presence of cardiac pacemaker; Z87.440 Personal history of urinary (tract) infections; Z87.891 Personal history of nicotine dependence; Z79.899 Other long term (current) drug therapy; Z66 Do not resuscitate
CPT/HCPCS: 36415; 36430; 80048; 80053; 81001; 84443; 84484; 85014; 85018; 85025; 86850; 86900; 86901; 87338; 93005; 96374; 97110; 97163; 97165; 97535; 99285; G0328; J2704; P9016